=== PATIENT | female | born 1975 | race Caucasian/White ===

== ENCOUNTER 2020-07-06 14:45 | Outpatient (CLI) | payer OTHER, SELFPAY ==
[2020-07-06 15:04] LABS: Hematocrit 38.9 % (37.0-47.0); Hemoglobin 13.3 g/dL (12.0-15.0)
== END 2020-07-06 14:46 | disposition home or self-care (01) ==
PROVIDERS: PCP Physician Assistant; Visit Provider Obstetrics & Gynecology
DX: N92.0 Excessive and frequent menstruation with regular cycle (principal); Z01.818 Encounter for other preprocedural examination
CPT/HCPCS: 36415; 85014; 85018

== ENCOUNTER 2020-07-07 02:59 | Outpatient (CLI) | payer OTHER, SELFPAY ==
[2020-07-07 19:47] LABS: SARS-CoV-2 RNA PCR Negative
== END 2020-07-07 03:00 | disposition home or self-care (01) ==
LOC: ANHCOVIDDT 02:59
PROVIDERS: PCP Physician Assistant; Visit Provider Obstetrics & Gynecology
DX: Z01.818 Encounter for other preprocedural examination (principal); Z20.828 Contact with and (suspected) exposure to other viral communicable diseases
CPT/HCPCS: 87635; C9803; U0003

== ENCOUNTER 2020-07-10 04:06 | Day surgery (SDC) | payer OTHER, SELFPAY ==
[2020-07-03 13:34] VITALS: BMI 22.8
--- NOTE | 2020-07-07 11:46 | PM.IMHP ---
H&P: HPI History of Present Illness Date/Time: 07/07/20 11:46 Chief complaint: Pelvic Pain, Menorrhagia Narrative: Elvia Feldman is a 44 year old female 1 para 1 who is admitted for hysteroscopy and dilatation curettage. She has had excessive bleeding and heavy cramping. She underwent an ultrasound that shows a possible polyp. Risks and benefits of these procedures were reviewed including but not exclusive of , aspiration pneumonia, bleeding, transfusion, perforation to bowel, bladder, ureters, or other internal organs with need for open laparotomy. She voiced understanding. She received the [employer] handout entitled hysteroscopy and dilatation curettage respectively. She asked to proceed Review of Systems Review of Systems: All systems reviewed & are unremarkable except as noted in HPI and below PMFSH Social History Social History Smoking packs per day: 0.5 Smoking cigarettes per day: 10.0 Years smoked: 10 Smoking pack-years: 5.00 Smoking status: Former smoker Tobacco type: cigars Smoking end date: 02/18/10 Additional smoking assessment comments: OCCAS CIGAR, ~1/WEEK Alcohol intake: current Drinks per week: 6 Substance use: never Additional living arrangements comments: & SON Spiritual care concerns: No Meds Home Medications and Allergies Home Medications Medication Instructions Recorded Confirmed Type No Home Medications 07/03/20 07/03/20 History Allergies Allergy/AdvReac Type Severity Reaction Status Date / Time No Known Allergies Allergy Mild Verified 07/03/20 13:33 Exam Const: General: no acute distress Neck: Neck: supple and no JVD Thyroid: thyroid normal Resp: Effort & Inspection: normal respiratory effort Auscultation: clear to auscultation bilaterally Cardio: Rate: regular rate Rhythm: regular rhythm GI: Inspection: non-distended GI Palp: Yes Soft to palpation, No Tenderness to palpation present (GI) and No Guarding due to palpation present (GI) Auscultation: normal bowel sounds : General: Yes bladder normal to palpation External Female Exam: normal external appearance Speculum Exam - Vagina: normal vaginal discharge and No vaginal bleeding Speculum Exam - Cervix: nontender Bimanual exam- vagina & uterus: bladder normal to palpation and No Cervical tenderness present OB/external & speculum: No vaginal bleeding Skin: General skin exam: no rashes or lesions noted Extrem: General: normal to inspection and no edema Psych: Mental Status: mental status grossly normal Affect: normal affect Assessment and Plan Additional Plan impression: Excessive heavy heavy bleeding with expected uterine polyp Plan: Hysteroscopy/ dilatation and curettage
--- NOTE | 2020-07-09 09:13 | WPDANESEPPF ---
Anes - Initial Pre Proc Eval Procedure: Operation Date: 07/10/20 11:30 Proposed Procedures p Hysteroscopy Dilation and Curettage - Vinayak Ace MD Date/Time: 07/09/20 09:13 Surgeon: Vinayak Ace MD Pre Op Diagnosis: Pelvic Pain, Menorrhagia Patient Data Age: 44 Gender: F Height: 1.7 m Weight: 66 kg Allergies Allergy/AdvReac Type Severity Reaction Status Date / Time No Known Allergies Allergy Mild Verified 07/03/20 13:33 Home Medications Medication Instructions Recorded Confirmed Type hydrocodone-acetaminophen [[place]] 1 tablet PO Q4H PRN #20 tablet 07/10/20 Rx Patient hx anesthesia problems: none Family hx anesthesia problems: none PMFSH Surgical History Surgical History (Updated 07/09/20 @ 09:14 by Delbert Boyce DO) History of tubal ligation Social History Social History Smoking packs per day: 0.5 Smoking cigarettes per day: 10.0 Years smoked: 10 Smoking pack-years: 5.00 Smoking status: Former smoker Tobacco type: cigars Smoking end date: 02/18/10 Additional smoking assessment comments: OCCAS CIGAR, ~1/WEEK Alcohol intake: current Drinks per week: 6 Substance use: never Living arrangements: with family Additional living arrangements comments: & SON Spiritual care concerns: No Anes - Eval Final PreProcedure Day of Procedure 07/09/20 09:13 Patient weight: normal Heart: regular rate and rhythm Lungs: clear to auscultation and normal air movement Airway: Mallampati scale class II Neurological: alert and oriented Last oral intake: >/= 8 hours ASA classification: II Emergent: no Anesthetic plan: proceed Anesthesia type and monitoring: general GIVS and standard monitoring Informed Consent: The patient's anesthetic plan and its attendant risks and benefits were discussed with the patient/family/POA. Questions were solicited and answers provided to the satisfaction of the patient/family/POA.
--- NOTE | 2020-07-10 06:34 | WPDHPUPDATE1 ---
History and Physical Update Update Date/Time: 07/10/20 06:34 History and Physical has been reviewed, including an updated exam of the patient. There are NO changes in the patient's condition. Risks, benefits, and alternatives have been discussed and questions answered. Patient agrees to proceed with procedure.
[2020-07-10 11:14] VITALS: BP 110/62; PULSE 58; RESP 18; TEMP 36.9; O2SAT 100
[2020-07-10] MEDS: LACTATED RINGERS 1,000 ML 30 ML IV CONT (11:25)
--- NOTE | 2020-07-10 12:05 | PM.PROC ---
Procedure Note - Detailed Date of procedure: 07/10/20 Pre-op diagnosis: Pelvic Pain, Menorrhagia Surgeon: Vinayak Ace MD Postop diagnosis: Pelvic pain/ menorrhagia Procedure: Hysteroscopy/ dilatation and curettage Anesthesia: IV sedation/local EBL: 5cc complications: None Findings: Uterus sounded to 9cm. Normal-appearing fallopian tube ostia bilaterally. Thick endometrium. Description of procedure: The patient was prepped and draped in normal sterile fashion and placed in dorsal lithotomy position. Under excellent IV sedation weighted speculum was placed in the posterior fornix of vagina. Anterior lip of the cervix grasped with a single-tooth tenaculum. 2.5cc of 1% xylocaine anesthesia placed at 2, 4, 8, 10:00 a.m. in the cervix respectively. Uterus sounded to 9cm. Serial dilatation with fragmented dilators performed. This was followed by passage of the 5 visualizing hysteroscope using normal saline as visualizing medium. Thick irregular endometrial tissue was seen but no evidence of other pathology. Uterus was scraped over the entire 360? until a good grating sound was heard. Answers removed all were accounted for. She tolerated the procedure well. All sponge, needle, instrument counts were correct. There were no immediate complications
[2020-07-10 12:08] VITALS: BP 106/67; PULSE 63; RESP 20; O2SAT 94
[2020-07-10 12:30] VITALS: BP 112/68; PULSE 70; RESP 20
[2020-07-10 12:50] VITALS: BP 107/68; PULSE 65; RESP 20
== END 2020-07-10 12:58 | disposition home or self-care (01) ==
PROVIDERS: PCP Physician Assistant; Visit Provider Obstetrics & Gynecology
PROC: 0U5B8ZZ Destruction of Endometrium, Via Natural or Artificial Opening Endoscopic (ICD-10-PCS; CPT 58563; principal; 2020-07-10 13:00)
DX: R10.2 Pelvic and perineal pain (principal); N92.0 Excessive and frequent menstruation with regular cycle; Z87.891 Personal history of nicotine dependence
CPT/HCPCS: 58558; 88305; A9270; J2250; J2405; J2704; J3010; J7120

== ENCOUNTER 2020-07-20 15:29 | Outpatient (CLI) | payer OTHER, SELFPAY ==
--- NOTE | ~2020-07-20 | MM_ITS ---
EXAMINATION: MM screening [facility] BI w govind HISTORY: Screening mammogram TECHNIQUE: Craniocaudal and mediolateral oblique 3-D tomosynthesis images were obtained and synthetic 2-D images were generated. CAD analysis was submitted and interpreted. COMPARISON: 07/01/2019, 12/25/2017 bilateral digital screening mammogram examinations BREAST PARENCHYMAL COMPOSITION: The breasts are heterogeneously dense, which may obscure small masses . FINDINGS: Scattered bilateral benign microcalcifications are noted. There is no evidence of suspiciou s mass, calcification, or architectural distortion to suggest malignancy in either breast. There has been no suspicious interval change. IMPRESSION: 1. No mammographic evidence of malignancy. 2. Recommend routine screening mammography in one year. BI-RADS Category 2: Benign finding(s). Reviewed, dictated and finalized at location A. [facility] DOCTOR
== END 2020-07-20 15:30 | disposition home or self-care (01) ==
LOC: ANHIMG 15:31
PROVIDERS: PCP Physician Assistant; Visit Provider Obstetrics & Gynecology
DX: Z12.31 Encounter for screening mammogram for malignant neoplasm of breast (principal)
CPT/HCPCS: 77063; 77067

== ENCOUNTER 2022-02-02 01:15 | Day surgery (SDC) | payer OTHER, SELFPAY ==
[2022-01-12 13:08] VITALS: BMI 24.8
--- NOTE | 2022-02-01 14:45 | WPDANESEPPF ---
Anes - Initial Pre Proc Eval Procedure: Operation Date: 02/02/22 07:30 Proposed Procedures p Screening Colonoscopy - Jay Duffy MD Date/Time: 02/01/22 14:45 Surgeon: Jay Duffy MD Pre Op Diagnosis: neoplasm screening Patient Data Age: 46 Gender: F Height: 1.7 m Weight: 72 kg Allergies Allergy/AdvReac Type Severity Reaction Status Date / Time No Known Allergies Allergy Mild Verified 02/02/22 06:23 Patient hx anesthesia problems: none Family hx anesthesia problems: none Results Review: All pre-operative results and documents have been reviewed as part of the pre-operative evaluation. [facility] Surgical History Surgical History History of tubal ligation Social History Social History Smoking packs per day: 0.5 Smoking cigarettes per day: 10.0 Years smoked: 20 Smoking pack-years: 10.00 Smoking status: Current every day smoker Tobacco type: cigars Smoking end date: 02/18/10 Additional smoking assessment comments: OCCAS CIGAR, ~1/WEEK Alcohol intake: current Drinks per week: 4 Substance use: never Substance use type: does not use Living arrangements: with family Additional living arrangements comments: & SON Spiritual care concerns: No Anes - Eval Final PreProcedure Day of Procedure 02/01/22 14:45 Patient weight: normal Heart: regular rate and rhythm Lungs: clear to auscultation and normal air movement Airway: Mallampati scale class II Neurological: alert and oriented Last oral intake: >/= 8 hours ASA classification: II Emergent: no Anesthetic plan: proceed Anesthesia type and monitoring: general GIVS and standard monitoring Results Review: All pre-operative results and documents have been reviewed as part of the pre-operative evaluation. Informed Consent: The patient's anesthetic plan and its attendant risks and benefits were discussed with the patient/family/POA. Questions were solicited and answers provided to the satisfaction of the patient/family/POA.
--- NOTE | 2022-02-01 16:00 | PM.HPGS ---
History of Present Illness History of Present Illness Consent: Risks, benefits, and alternatives have been discussed and questions answered. Patient agrees to proceed with procedure. Chief complaint: neoplasm screening Narrative: Elvia Feldman is a 46 year old female referred for colon cancer screening Review of Systems Review of Systems: All systems reviewed & are unremarkable except as noted in HPI and below [facility] Surgical History Surgical History History of tubal ligation Social History Social History Smoking packs per day: 0.5 Smoking cigarettes per day: 10.0 Years smoked: 20 Smoking pack-years: 10.00 Smoking status: Current every day smoker Tobacco type: cigars Smoking end date: 02/18/10 Additional smoking assessment comments: OCCAS CIGAR, ~1/WEEK Alcohol intake: current Drinks per week: 4 Substance use: never Substance use type: does not use Living arrangements: with family Additional living arrangements comments: & SON Spiritual care concerns: No Meds Home Medications and Allergies Allergies Allergy/AdvReac Type Severity Reaction Status Date / Time No Known Allergies Allergy Mild Verified 02/02/22 06:23 Exam Resp: Auscultation: clear to auscultation bilaterally Cardio: Rate: regular rate Rhythm: regular rhythm GI: GI Palp: Yes Soft to palpation and No Tenderness to palpation present (GI) Assessment and Plan Assessment and plan (1) Colon cancer screening: Code(s): Z12.11 - Encounter for screening for malignant neoplasm of colon Status: Acute Assessment and Plan: Colonoscopy with possible biopsy or polypectomy or cautery or injection of substances.
[2022-02-02 06:24] VITALS: BP 106/81; PULSE 60; RESP 16; TEMP 36.3; O2SAT 100
[2022-02-02] MEDS: LACTATED RINGERS 1,000 ML 150 ML IV CONT ×2 (06:38→06:39)
--- NOTE | 2022-02-02 07:13 | P.PNAN_ITS ---
Anes - Initial Pre Proc Eval Procedure: Operation Date: 02/02/22 07:30 Proposed Procedures p Screening Colonoscopy - Jay Duffy MD Date/Time: 02/02/22 07:13 Surgeon: Jay Duffy MD Pre Op Diagnosis: neoplasm screening Patient Data Age: 46 Gender: F Height: 1.7 m Weight: 73.1 kg Last Vital Signs Temp 97.4 F L 02/02/22 06:24 Pulse 60 02/02/22 06:24 Resp 16 02/02/22 06:24 BP 106/81 02/02/22 06:24 Pulse Ox 100 02/02/22 06:24 O2 Del Method Room Air 02/02/22 06:24 Allergies Allergy/AdvReac Type Severity Reaction Status Date / Time No Known Allergies Allergy Mild Verified 02/02/22 06:23 Patient hx anesthesia problems: none Family hx anesthesia problems: none Results Review: All pre-operative results and documents have been reviewed as part of the pre- operative evaluation. [facility] Surgical History Surgical History History of tubal ligation Social History Social History Smoking packs per day: 0.5 Smoking cigarettes per day: 10.0 Years smoked: 20 Smoking pack-years: 10.00 Smoking status: Current every day smoker Tobacco type: cigars Smoking end date: 02/18/10 Additional smoking assessment comments: OCCAS CIGAR, ~1/WEEK Alcohol intake: current Drinks per week: 4 Substance use: never Substance use type: does not use Living arrangements: with family Additional living arrangements comments: & SON Spiritual care concerns: No Anes - Eval Final PreProcedure Day of Procedure 02/02/22 07:13 Heart: regular rate and rhythm Lungs: clear to auscultation Airway: Mallampati scale class 1 Neurological: alert and oriented Last oral intake: >/= 8 hours ASA classification: II Emergent: yes Anesthetic plan: proceed Anesthesia type and monitoring: general Results Review: All pre-operative results and documents have been reviewed as part of the pre- operative evaluation. Informed Consent: The patient's anesthetic plan and its attendant risks and benefits were discussed with the patient/family/POA. Questions were solicited and answers provided to the satisfaction of the patient/family/POA.
[2022-02-02] MEDS: SIMETHICONE ORAL SUSPENSION 20 MG/0.3 ML 30 ML BOTTLE 0.6 ML IRRIGATION (07:37)
[2022-02-02 07:50] VITALS: BP 104/71; PULSE 67; RESP 18; O2SAT 100
[2022-02-02 07:59] VITALS: BP 105/76; PULSE 58; RESP 18; O2SAT 100
[2022-02-02 08:09] VITALS: BP 101/70; PULSE 52; RESP 20; O2SAT 100
== END 2022-02-02 08:20 | disposition home or self-care (01) ==
PROVIDERS: PCP Physician Assistant; Visit Provider Internal Medicine Gastroenterology
PROC: 0DJD8ZZ Inspection of Lower Intestinal Tract, Via Natural or Artificial Opening Endoscopic (ICD-10-PCS; CPT 45378; principal; 2022-02-02 07:30)
DX: Z12.11 Encounter for screening for malignant neoplasm of colon (principal); K57.30 Diverticulosis of large intestine without perforation or abscess without bleeding; Z72.0 Tobacco use
CPT/HCPCS: 45378; J2704; J7120

== ENCOUNTER 2022-05-31 07:14 | Outpatient (CLI) | payer OTHER, SELFPAY ==
--- NOTE | ~2022-05-31 | MM_ITS ---
EXAMINATION: MM screening [facility] BI w govind HISTORY: Screening TECHNIQUE: Craniocaudal and mediolateral oblique 3-D tomosynthesis images were obtained and synthetic 2-D images were generated. CAD analysis was submitted and interpreted. COMPARISON: Comparison to multiple prior studies sequentially, with oldest reviewed study dated 02/2018. BREAST PARENCHYMAL COMPOSITION: The breasts are extremely dense, which lowers the sensitivity of mamm ography FINDINGS: There are developing calcifications in the upper inner quadrant of the right breast, middle third. There are no suspicious masses or architectural distortion. The left breast is stable without evidence for malignancy. IMPRESSION: 1. Developing clustered indeterminate right breast calcifications, upper inner quadrant middle third. 2. Magnification views are recommended. BI-RADS Category 0: Incomplete: Needs additional imaging evaluation. Reviewed, dictated and finalized at location A.
== END 2022-05-31 07:15 | disposition home or self-care (01) ==
LOC: ANHIMG 07:15
PROVIDERS: PCP Physician Assistant; Visit Provider Obstetrics & Gynecology
DX: Z12.31 Encounter for screening mammogram for malignant neoplasm of breast (principal); R92.8 Other abnormal and inconclusive findings on diagnostic imaging of breast
CPT/HCPCS: 77063; 77067

== ENCOUNTER 2022-06-13 12:51 | Outpatient (CLI) | payer OTHER, SELFPAY ==
--- NOTE | ~2022-06-13 | MM_ITS ---
EXAMINATION: MM diagnostic mammo unilat RT HISTORY: Indeterminate right breast calcifications on screening mammogram TECHNIQUE: Magnification views of the right breast were performed. CAD analysis was submitted and int erpreted. COMPARISON: 05/31/2022, 07/20/2020 FINDINGS: There are punctate calcifications in the anterior middle third of the upper breast at the 1 2:00 location which appear to be round in morphology. No associated mass or architectural distortion are identified. IMPRESSION: 1. Probably benign right breast calcifications. 2. Recommend 6 month follow-up right diagnostic mammogram. BI-RADS category 3, probably benign findings. Reviewed, dictated and finalized at location A.
== END 2022-06-13 12:52 | disposition home or self-care (01) ==
LOC: ANHIMG 12:53
PROVIDERS: PCP Physician Assistant; Visit Provider Obstetrics & Gynecology
DX: R92.8 Other abnormal and inconclusive findings on diagnostic imaging of breast (principal)
CPT/HCPCS: 77065

== ENCOUNTER 2023-01-19 13:21 | Outpatient (CLI) | payer OTHER, SELFPAY ==
--- NOTE | ~2023-01-19 | MMUS_ITS ---
EXAMINATION: MM diagnostic [facility] RT w govind, US breast RT complete HISTORY: Six-month follow-up of probably benign right breast calcifications TECHNIQUE: ML, MLO and CC 3-D tomosynthesis images of the right breast were performed and synthetic 2 -D images were generated. CAD analysis was submitted and interpreted. Magnification ML and CC views. High resolution complete right breast ultrasound examination including all 4 quadrants and subareolar area was performed. COMPARISON: 06/09/2022 diagnostic right mammogram 05/31/2022 bilateral screening mammogram BREAST PARENCHYMAL COMPOSITION: The breasts are extremely dense, which lowers the sensitivity of mamm ography. FINDINGS: MAMMOGRAPHIC FINDINGS: Numerous benign microcalcifications are scattered in the right breast. No malignant features are iden tified. Approximately by 10.5 mm circumscribed opacity is noted in the upper mid right breast (MLO Tomosynthe sis image /33; CC Tomosynthesis image /). No suspicious mass, architectural distortion, malignant calcification, skin thickening or retraction or significant new or developing density of the right breast is evident. ULTRASOUND: 9:00 2 cm from nipple: 4.4 x 5.9 x 6.2 mm sonolucency with through transmission posterior enhancement , no internal vascularity, consistent with simple cyst 1:00 2 cm from nipple: Parallel circumscribed multiseptated cyst measuring approximately 6.8 x 3.4 x 14.1 mm No suspicious mass or shadowing of either breast is detected. IMPRESSION: 1. Benign microcalcifications in benign cysts; no mammographic evidence of malignancy 2. Routine annual mammographic screening is recommended BI-RADS Category 2: Benign finding(s). Reviewed, dictated and finalized at location A. IMPRESSION: 1. Benign microcalcifications in benign cysts; no mammographic evidence of david gnancy 2. Routine annual mammographic screening is recommended BI-RADS Category 2: Benign finding(s).
== END 2023-01-19 13:22 | disposition home or self-care (01) ==
PROVIDERS: PCP Physician Assistant; Visit Provider Obstetrics & Gynecology
DX: R92.8 Other abnormal and inconclusive findings on diagnostic imaging of breast (principal)
CPT/HCPCS: 76641; 77061; 77065; G0279

== ENCOUNTER 2023-04-18 10:34 | Emergency (ER) | payer OTHER, SELFPAY ==
--- NOTE | 2023-04-18 10:37 | ED.URI ---
HPI - URI/Sore Throat General Chief Complaint: Upper Respiratory Infection Stated Complaint: Sore Throat Time Seen by Provider: 04/18/23 10:37 Source: patient Mode of arrival: ambulatory Limitations: no limitations History of Present Illness HPI Narrative: Claudia is a 47 y/o Female that presents with right eye irritation, congestion and sore throat since Monday. Patient states she thought it was allergies and has been using visine eye drops and over the counter cold and flu medication with moderate relief. Patient states sore throat has worsened but eye has improved. Denies any fever, chills, cough, SOB, Nausea, vomiting or diarrhea. Related Data Home Medications Medication Instructions Recorded Confirmed buspirone 15 mg tablet 15 mg PO BID 04/18/23 04/18/23 methylphenidate HCl 10 mg tablet 10 mg PO BID 04/18/23 04/18/23 Allergies Allergy/AdvReac Type Severity Reaction Status Date / Time No Known Allergies Allergy Mild Verified 04/18/23 10:43 Review of Systems Review of Systems: All systems reviewed & are unremarkable except as noted in HPI and below Constitutional: Constitutional: Denies body ache(s), Denies chills, Denies fatigue, Denies fever(s), Denies headache(s), Denies malaise and Denies weakness Eyes: Eyes: Denies blurry vision, Reports itchy eyes and Denies loss of vision ENT: Denies otalgia, Denies headache(s), Reports nasal congestion, Denies sinus pain and Reports sore throat Cardiovascular: Cardiovascular: Denies chest pain, Denies irregular heart rhythm and Denies dyspnea Respiratory: Respiratory: Denies cough and Denies dyspnea Gastrointestinal: Gastrointestinal: Denies abdominal pain, Denies diarrhea, Denies nausea and Denies vomiting Musculoskeletal: Musculoskeletal: Denies back pain, Denies myalgias and Denies arthralgias Integumentary/Breasts: Skin/Breast: Denies pruritus and Denies rash Neurologic: Denies headache(s), Denies loss of vision and Denies weakness Psychiatric: Psychiatric: Reports no additional psychiatric complaints Endocrine: Endocrine: Denies fatigue Allergic/Immunologic: Allergic/Immunologic: Denies itchy eyes PMFSH Surgical History Surgical History History of tubal ligation Social History Social History Smoking packs per day: 0.5 Smoking cigarettes per day: 10.0 Years smoked: 20 Smoking pack-years: 10.00 Smoking status: Current every day smoker Tobacco type: cigars Smoking end date: 02/18/10 Additional smoking assessment comments: OCCAS CIGAR, ~1/WEEK Alcohol intake: current Drinks per week: 4 Substance use: never Substance use type: does not use Living arrangements: with family Additional living arrangements comments: & SON Spiritual care concerns: No Comments At time of signature, agree with nursing past medical, surgical, social and family history. There is no relevant family history pertinent to the presenting complaint. Exam Const: General: cooperative, healthy appearing, comfortable, no acute distress and well nourished Nutritional Appearance: well nourished Orientation/consciousness: patient oriented x3 Limitations: no limitations HENMT: Head: normal to inspection, normocephalic and atraumatic Ears: hearing grossly normal bilaterally, external ears normal, TM's normal bilaterally, EAC's normal and no periauricular adenopathy Face/Nose/Sinus: Normal external nose present, Normal nasal mucous membranes and turbinates present, normal facial exam, sinuses nontender and face symmetric Face and sinus: normal facial exam, sinuses nontender and face symmetric Mouth: Yes Normal oral and palatal mucosa present, Yes lip normal, Yes tongue normal, Yes Normal salivary glands and ducts present, Yes oropharynx normal and Yes moist mucous membranes Teeth and gingiva: dentition normal Throat: tonsils normal, uvula midline,
[2023-04-18 10:42] VITALS: BP 120/75; PULSE 63; RESP 16; TEMP 37.1; O2SAT 100
[2023-04-18 10:44] VITALS: BP 120/75; PULSE 63; RESP 16; TEMP 37.1; O2SAT 100
== END 2023-04-18 11:07 | disposition home or self-care (01) ==
PROVIDERS: Emergency Provider Nurse Practitioner Family; PCP Physician Assistant
DX: J06.9 Acute upper respiratory infection, unspecified (principal); Z72.0 Tobacco use
CPT/HCPCS: 87081; 87880; 99213; G0463

== ENCOUNTER 2023-05-01 13:51 | Emergency (ER) | payer OTHER, SELFPAY ==
[2023-05-01 14:04] VITALS: BP 128/83; PULSE 59; RESP 18; TEMP 36.9; O2SAT 100
--- NOTE | 2023-05-01 14:23 | ED.URI ---
HPI - URI/Sore Throat General Chief Complaint: Upper Respiratory Infection Stated Complaint: Sore Throat Time Seen by Provider: 05/01/23 14:11 Source: patient, RN notes reviewed and old records reviewed Mode of arrival: ambulatory Limitations: no limitations History of Present Illness HPI Narrative: Patient presents today complaining of sore throat, bilateral ear pressure, fatigue, mild congestion. Symptoms have been present for at least 2 weeks. She was initially seen at [facility] on 04/18/2023 where her rapid strep was negative and she was diagnosed with an upper respiratory infection. States some for symptoms have improved, but the sore throat is what is bothering her the most. She currently rates her pain 10 and has been taking Tylenol and ibuprofen without relief. Related Data Home Medications Medication Instructions Recorded Confirmed buspirone 15 mg tablet 15 mg PO BID 04/18/23 05/01/23 methylphenidate HCl 10 mg tablet 10 mg PO BID 04/18/23 05/01/23 Allergies Allergy/AdvReac Type Severity Reaction Status Date / Time No Known Allergies Allergy Mild Verified 05/01/23 14:01 Review of Systems Review of Systems: CONSTITUTIONAL: Denies body aches, fever, chills, or sweats.+ fatigue EYES: Denies visual changes, redness, or discharge. ENT: Denies rhinorrhea.+ congestion, sore throat, ear pressure CARDIOVASCULAR: Denies chest pain, palpitations, or edema. RESPIRATORY: Denies cough or dyspnea. GASTROINTESTINAL: Denies abdominal pain, nausea, vomiting, or diarrhea. GENITOURINARY: Denies dysuria or hematuria. SKIN: Denies rash, itching, or wounds. MUSCULOSKELETAL: Denies back pain, joint pain, or myalgia. NEUROLOGIC: Denies headache, numbness, tingling, or weakness. PSYCH: Denies depression or anxiety. [facility] Surgical History Surgical History History of tubal ligation Social History Social History Smoking packs per day: 0.5 Smoking cigarettes per day: 10.0 Years smoked: 20 Smoking pack-years: 10.00 Smoking status: Current every day smoker Tobacco type: cigars Smoking end date: 02/18/10 Additional smoking assessment comments: OCCAS CIGAR, ~1/WEEK Alcohol intake: current Drinks per week: 4 Substance use: never Substance use type: does not use Living arrangements: with family Additional living arrangements comments: & SON Spiritual care concerns: No Comments At time of signature, I have reviewed and agree with nursing past medical, surgical, social and family history unless otherwise noted. Please see nursing chart for further information. There is no relevant family history pertinent to the presenting complaint Exam Narrative: GENERAL: Well-appearing, well-nourished, and in no acute distress. HEAD: Normocephalic, atraumatic. EYES: EOMI. No redness or drainage. Conjunctivae normal. ENT: Mucous membranes pink and moist. Nares clear. No rhinorrhea. TMs normal bilaterally. Throat mildly erythematous without edema or exudate. Uvula midline. NECK: Normal AROM. Supple. Bilateral posterior cervical chain lymphadenopathy. CHEST: No respiratory distress. Clear to auscultation. HEART: Regular rate and rhythm. No murmur appreciated. Normal peripheral pulses. EXTREMITIES: Normal range of motion. No edema. SKIN: Warm, dry, no rash. Capillary refill normal. Normal skin turgor. NEURO: No focal deficits. Alert and oriented x3. Gait steady. PSYCH: Normal affect. No signs of depression or anxiety. Course Course Level of Care: Express Care Visit Vital Signs Vital signs: Vital Signs Temperature 98.4 F 05/01/23 14:04 Pulse Rate 59 L 05/01/23 14:04 Respiratory Rate 18 05/01/23 14:04 Blood Pressure 128/83 05/01/23 14:04 Pulse Oximetry 100 05/01/23 14:04 Oxygen Delivery Room Air 05/01/23 14:04 Temperature 98.4 F 05/01
== END 2023-05-01 14:43 | disposition home or self-care (01) ==
PROVIDERS: Emergency Provider Nurse Practitioner; PCP Physician Assistant
DX: J02.9 Acute pharyngitis, unspecified (principal); Z72.0 Tobacco use
CPT/HCPCS: 36416; 86308; 99213; G0463

== ENCOUNTER → 2023-06-01 09:01 | Outpatient (CLI) | payer OTHER, SELFPAY ==
--- NOTE | ~2023-06-01 | MR_ITS ---
EXAMINATION: MR brain/brain stem wo/w con DATE: 06/01/2023 10:07 INDICATION: Closed injury of head. TECHNIQUE: Magnetic resonance imaging (MRI) of the brain and brainstem was performed without and with 12 mL MultiHance intravenous contrast. COMPARISON: None. FINDINGS: There is no intracranial hemorrhage, acute infarction, or abnormal intracranial mass lesion . There are scattered areas of nonspecific increased T2-weighted signal intensity in the cerebral whi te matter. The ventricles are normal in size. The paranasal sinuses are clear. The orbits are normal. The mastoid air cells are normal. IMPRESSION: 1. Mild nonspecific cerebral white matter disease. The differential diagnosis includes premature last inserter chantell small vessel ischemic disease (especially if the patient has cardiovascular risk factors), demyel inating disease such as multiple sclerosis, drug abuse, vasculitis, or reactive astrocytosis (gliosis ) secondary to nonspecific etiology. Reviewed, dictated and finalized at location A. IMPRESSION: 1. Mild nonspecific cerebral white matter disease. The differential diagnosis i ncludes premature chronic small vessel ischemic disease (especially if the quique ent has cardiovascular risk factors), demyelinating disease such as multiple sc lerosis, drug abuse, vasculitis, or reactive astrocytosis (gliosis) secondary t o nonspecific etiology.
== END ==
PROVIDERS: PCP Physician Assistant; Visit Provider Physician Assistant
DX: S09.90XA Unspecified injury of head, initial encounter (principal); X58.XXXA Exposure to other specified factors, initial encounter; R90.82 White matter disease, unspecified
CPT/HCPCS: 70553; A9577

== ENCOUNTER 2024-07-14 08:13 | Observation (INO) | payer OTHER, SELFPAY ==
--- NOTE | ~2024-07-14 | CT_ITS ---
EXAMINATION: CT abdomen pelvis w con DATE: 07/14/2024 09:13 INDICATION: Bilateral lower quadrant pain. TECHNIQUE: Computed tomography (CT) of the abdomen and pelvis was performed with 100 mL Omnipaque-350 intravenous contrast. Automated exposure control and iterative reconstruction technique were employe d. The dose-length product was 237.52 mGy-cm. COMPARISON: None FINDINGS: Lung bases are clear. Heart size is normal. No pericardial or pleural effusion. Liver, gallbladder, s pleen, pancreas, bilateral adrenal glands and kidneys are normal. Bladder is normal. Uterus is normal . There are 3 tiny ringlike densities in the left hemipelvis which could represent phleboliths or tub al ligation rings, potentially displaced. Correlate with clinical history. There is moderate sigmoid predominant diverticulosis. There is prominent wall thickening and inflammatory stranding at the mid sigmoid colon consistent with diverticulitis. No free intraperitoneal gas or abscess. Small bowel and appendix are normal. Bones are unremarkable. IMPRESSION: 1. Sigmoid diverticulitis without abscess. 2. 3 tiny ringlike densities in the left hemipelvis suspicious for potentially displaced tubal ligati on rings with differential including phleboliths. Correlate with clinical history. Reviewed, dictated and finalized at location A. NCIAL SERVICES SPECIALIST IMPRESSION: 1. Sigmoid diverticulitis without abscess. 2. 3 tiny ringlike densities in the left hemipelvis suspicious for potentially displaced tubal ligation rings with differential including phleboliths. Correla te with clinical history.
[2024-07-14 08:14] VITALS: BP 114/75; PULSE 89; RESP 17; TEMP 36.4; O2SAT 100
[2024-07-14 08:32] LABS: Basophils Percent Auto 0.2 % (0.2-1.2); Eosinophils Percent Auto 0.1 % (0-4.4); Hematocrit 40.9 % (37.0-47.0); Hemoglobin 13.8 g/dL (12.0-15.0); Immature Granulocyte Absolute 0.06 K/mm3 (0.00-0.031); Immature Granulocyte Percent A 0.3 % (0-0.5); Lymphocytes Percent Auto 7.4 % (18.3-44.2); Mean Corpuscular HGB Conc 33.7 g/dl (32-36); Mean Corpuscular Hemoglobin 32.5 pg (26-34); Mean Corpuscular Volume 96.5 fl (80-100); Mean Platelet Volume 10.5 fl (7.4-10.4); Monocytes Absolute Auto 1.4 K/mm3 (0.1-0.6); Monocytes Percent Auto 7.4 % (2.6-8.5); Neutrophils Percent Auto 84.6 % (45.5-73.1); Platelet Count Result 298 k/mm3 (150-375); Red Blood Count 4.24 M/mm3 (4.2-5.4); Red Cell Distribution Width 12.6 % (11.5-14.5); White Blood Count 18.9 K/mm3 (4.5-10.0)
[2024-07-14] MEDS: MORPHINE SULFATE (*CRX) 4 MG/ML INJ IV PUSH (08:38)
[2024-07-14] MEDS: ONDANSETRON INJ 4 MG/2 ML VIAL IV PUSH ×2 (08:38→17:45)
[2024-07-14 08:39] LABS: BEDSIDEPREGUCG Negative (Negative)
[2024-07-14 08:43] LABS: Alanine Aminotransferase 19 U/L (6-35); Albumin Level 4.5 g/dL (3.5-5.1); Alkaline Phosphatase 67 U/L (38-126); Anion Gap 10 mmol/L (4-12); Aspartate Amino Transferase 26 U/L (14-36); Bilirubin,Total 3.4 mg/dL (0.2-1.3); Blood Urea Nitrogen 5 mg/dL (7-17); Calcium 9.1 mg/dL (8.4-10.2); Carbon Dioxide 24 mmol/L (22-30); Chloride 99 mmol/L (98-107); Estimated Glomerular Filt Rate > 60; Glucose 129 mg/dL (65-110); Lipase 43 U/L (23-300); Potassium 3.6 mmol/L (3.4-5.0); Sodium 133 mmol/L (137-145)
[2024-07-14 08:49] LABS: Add Urine Microscopic? YES; Appearance Urine Clear (Clear); Bacteria Urine None Seen /hpf; Bilirubin Urine Negative (Negative); Blood Urine Non-Hemolyzed Trace (Negative); Color Urine Yellow (Yellow); Glucose Urine UA Negative (Negative); Ketones Urine 4+ mg/dL (Negative); Leukocyte Esterase Ur Negative LEU/UL (Negative); Nitrate Urine Negative (Negative); Non Pathogenic Casts 0-2; Protein Urine Trace mg/dL (Negative); Specific Grav Ur 1.018 (1.001-1.035); Squamous Epithelial Cell Urine Few /hpf (Few); WBC Urine 0-5 /hpf (0-3); pH Urine 6.5 (5.0-9.0)
--- NOTE | 2024-07-14 09:32 | ED_ITS ---
HPI - Abdominal Pain General Chief Complaint: Abdominal Pain Stated Complaint: abd pain for 12 hours Time Seen by Provider: 07/14/24 08:21 History of Present Illness HPI narrative: Patient is a 48-year-old female who presents ER with abdominal pain. Ongoing since yesterday. Aching cramping. No diarrhea. Unable to get comfortable and has pain with any type of movement. No fevers or chills or sweats. Has history of back to the radiculitis. Related Data Home Medications Medication Instructions Recorded Confirmed buspirone 15 mg tablet 15 mg PO BID 04/18/23 05/01/23 methylphenidate HCl 10 mg tablet 10 mg PO BID 04/18/23 05/01/23 Allergies Allergy/AdvReac Type Severity Reaction Status Date / Time No Known Allergies Allergy Mild Verified 07/14/24 08:14 Review of Systems Review of Systems: All systems reviewed & are unremarkable except as noted in HPI and below Constitutional: Constitutional: Reports no additional constitutional complaints ENT: Reports system reviewed and no additional complaints, except as documented Cardiovascular: Cardiovascular: Reports no additional cardiovascular complaints Respiratory: Respiratory: Reports no additional respiratory complaints Gastrointestinal: Gastrointestinal: Reports abdominal pain, Denies diarrhea, Reports nausea and Denies vomiting PMFSH Past Medical History Medical History (Updated 07/14/24 @ 10:19 by Christopher Kumar MD) Diverticulosis Surgical History Surgical History History of tubal ligation Social History Social History Smoking packs per day: 0.5 Smoking cigarettes per day: 10.0 Years smoked: 20 Smoking pack-years: 10.00 Smoking status: Current every day smoker Tobacco type: cigars Smoking end date: 02/18/10 Additional smoking assessment comments: OCCAS CIGAR, ~1/WEEK Alcohol intake: current Drinks per week: 4 Substance use: never Substance use type: does not use Living arrangements: with family Additional living arrangements comments: & SON Spiritual care concerns: No Exam Narrative: GENERAL: Well-appearing, well-nourished, and in no acute distress. HEAD: Normocephalic, atraumatic. ENT: Mucous membranes moist. CHEST: Clear to auscultation. No respiratory distress. HEART: Regular rate and rhythm. Normal peripheral pulses. ABDOMEN: Soft, tender palpation bilateral lower quadrants with guarding, nondistended, normal active bowel sounds. EXTREMITIES: Normal range of motion. No edema. SKIN: Warm, dry, no rash. NEURO: Alert and oriented x3. PSYCH: Normal mood and affect. Course Course Emergency Course: admit to hospitalist service. IV antibiotics ordered. Vital Signs Vital signs: Vital Signs Temperature 97.6 F 07/14/24 08:14 Pulse Rate 89 07/14/24 08:14 Respiratory Rate 17 07/14/24 08:14 Blood Pressure 114/75 07/14/24 08:14 Pulse Oximetry 100 07/14/24 08:14 Oxygen Delivery Room Air 07/14/24 08:14 Temperature 97.6 F 07/14/24 08:14 Pulse Rate 89 07/14/24 08:14 Respiratory Rate 17 07/14/24 08:14 Blood Pressure 114/75 07/14/24 08:14 Pulse Oximetry 100 07/14/24 08:14 Oxygen Delivery Room Air 07/14/24 08:14 MDM - Abdominal Pain Lab Data 07/14/24 08:27 07/14/24 08:27 Labs: Lab Results 07/14/24 07/14/24 07/14/24 Range/Units 08:27 08:36 08:37 WBC 18.9 H (4.5-10.0) K/mm3 RBC 4.24 (4.2-5.4) M/mm3 Hgb 13.8 (12.0-15.0) g/dL Hct 40.9 (37.0-47.0) % MCV 96.5 (80-100) fl MCH 32.5 (26-34) pg MCHC 33.7 (32-36) g/dl RDW 12.6 (11.5-14.5) % Plt Count 298 (150-375) k/mm3 MPV 10.5 H (7.4-10.4) fl Immature Gran % (Auto) 0.3 (0-0.5) % Neut % (Auto) 84.6 H (45.5-73.1) % Lymph % (Auto) 7.4 L (18.3-44.2) % [place] % (Auto) 7.4 (2.6-8.5) % Eos % (Auto) 0.1 (0-4.4) % Baso % (Auto) 0.2 (0.2-1.2) % Lymph # (Auto) 1.40 (0.9-3.2) K/mm3 [place] # (Auto) 1.4 H (0.1-0.6) K/mm3 Eos # (Auto) 0.0 (0-0.3) K/mm3 Baso # (Auto) 0.0 (0.0-0.1) K/mm3 Abs Immat Gran (auto) 0.06 H (0.00-0.031) K/mm3 Absolute Neuts (auto) 16.0 H (1.3-6.7) K/mm3 Absolute Nucleated RBC 0.000 (0.0-0.012) K/mm3 Nucleated RBC % 0.0 (0.0-0.2) % Sodium 133 L (137-145) mmol/L Potassium 3.6 (3.4-5.0) mmol/L Chloride 99 (98-107) mmol/L Carbon Dioxide 24 (22-30) mmol/L Anion Gap 10 (4-12) mmol/L BUN 5 L (7-17) mg/dL Creatinine 0.50 L (0.7-1.0) mg/dL Estim Creat Clear Calc Not Reportable Estimated GFR > 60 (59 - ) Glucose 129 H (65-110) mg/dL Calcium 9.1 (8.4-10.2) mg/dL Total Bilirubin 3.4 H (0.2-1.3) mg/dL AST 26 (14-36) U/L ALT 19 (6-35) U/L Alkaline Phosphatase 67 (38-126) U/L Total Protein 8.0 (6.3-8.2) g/dL Albumin 4.5 (3.5-5.1) g/dL Lipase 43 (23-300) U/L Urine Color Yellow (Yellow) Urine Appearance Clear (Clear) Urine pH 6.5 (5.0-9.0) Ur Specific [place] 1.018 (1.001-1.035) Urine Protein Trace (Negative) mg/dL Urine Glucose (UA) Negative (Negative) mg/dL Urine Ketones 4+ H (Negative) mg/dL Ur Blood (Man) Non-hemolyzed trace H (Negative) Urine Nitrate Negative (Negative) Urine Bilirubin Negative (Negative) Urine Urobilinogen 1.0 (<2.0) mg/dL Leukocyte Esterase Rfl Negative (Negative) JASS/UL Urine RBC 3-5 H (0-2) /hpf Urine WBC 0-5 (0-3) /hpf Ur Squamous Epith Cells Few (Few) /hpf Urine Bacteria None seen /hpf Urine Casts 0-2 POC Urine HCG, Qual Negative (Negative) Imaging Data Radiologist's impression: ITS Impressions Abdomen/Pelvis CT 07/14/24 09:17 IMPRESSION: 1. Sigmoid diverticulitis without abscess. 2. 3 tiny ringlike densities in the left hemipelvis suspicious for potentially displaced tubal ligation rings with differential including phleboliths. Correlate with clinical history. Discharge Plan Discharge Clinical Impression: Diverticulitis Patient Disposition: Still a Patient Condition: Stable Prescriptions: No Action methylphenidate HCl 10 mg tablet 10 mg PO BID buspirone 15 mg tablet 15 mg PO BID prednisone 50 mg tablet 50 mg PO DAILY 3 Days Qty: 3 0RF amoxicillin-pot clavulanate 875-125 mg tablet 1 tablet PO Q12H 7 Days Qty: 14 0RF Follow-up/Referrals: Karen,DELMI Duncan [Primary Care Provider] -
[2024-07-14] MEDS: SODIUM CHLORIDE 0.9% IV 1,000 ML 125 ML IV CONT ×2 (10:27→17:45)
[2024-07-14] MEDS: HYDROcodone/acetaminophen (*CRX) 5-325 MG TABLET 1 TAB PO ×3 (10:30→22:40)
[2024-07-14] MEDS: metroNIDAZOLE 500 MG/ISO 100ML 500 MG/100 ML BAG 100 MG IVPB ×2 (10:52→17:46)
[2024-07-14 11:08] VITALS: BMI 22.8
--- NOTE | 2024-07-14 11:08 | PC.NURSE ---
received report from ED RN, Bella, @ [phone] 07/14/24.
[2024-07-14] MEDS: MORPHINE SULFATE (*CRX) 2 MG/ML INJ IV PUSH ×2 (12:14→14:17)
--- NOTE | 2024-07-14 12:15 | P.HP_ITS ---
H&P: HPI History of Present Illness Date/Time: 07/14/24 12:15 Chief Complaint: abd pain Narrative: 48 y.o female with pmh/o diverticulosis, smoker admitted from ed for abd pain x 12 hours. Describes it as cramping, denies diarrhea, fever, chills. IN ED: WBC 18.9, hg/hct 13.8/40.9, liver enzymes wnl, BUN 5, cr 0.50 Abdomen/Pelvis CT 07/14/24 09:17 IMPRESSION: 1. Sigmoid diverticulitis without abscess. 2. 3 tiny ringlike densities in the left hemipelvis suspicious for potentially displaced tubal ligation rings with differential including phleboliths. Correlate with clinical history. 07/14- pt is seen and examined. she reports no acute episodes in the past but family has diverticulitis problems. She vapes but wants to quit. Takes adderall for ADHD. Was given morphine and pain is well controlled now. no nausea. Review of Systems Review of Systems: All systems reviewed & are unremarkable except as noted in HPI and below (h/p) [facility] Past Medical History Medical History (Updated 07/14/24 @ 13:24 by Bridget Marie APRN) Diverticulosis Surgical History Surgical History History of tubal ligation Social History Social History Smoking packs per day: 0.5 Smoking cigarettes per day: 10.0 Years smoked: 20 Smoking pack-years: 10.00 Smoking status: Current every day smoker Additional smoking assessment comments: OCCAS CIGAR, ~1/WEEK Alcohol intake: current Drinks per week: 4 Substance use: never Substance use type: does not use Living arrangements: with family Additional living arrangements comments: & SON Spiritual care concerns: No Meds Home Medications and Allergies Home Medications Medication Instructions Recorded Confirmed Type buspirone 15 mg tablet 15 mg PO BID 04/18/23 05/01/23 History methylphenidate HCl 10 mg tablet 10 mg PO BID 04/18/23 05/01/23 History amoxicillin 875 mg-potassium 1 tablet PO Q12H 7 days #14 tabs 05/01/23 Rx clavulanate 125 mg tablet prednisone 50 mg tablet 50 mg PO DAILY 3 days #3 tabs 05/01/23 Rx Allergies Allergy/AdvReac Type Severity Reaction Status Date / Time No Known Allergies Allergy Mild Verified 07/14/24 08:14 Vital Signs Vital Signs - 24 hr 07/14/24 08:14 Temperature 97.6 F Pulse Rate 89 Respiratory Rate 17 Blood Pressure 114/75 Pulse Oximetry 100 Oxygen Delivery Room Air Exam Const: General: comfortable Eyes: General: appearance normal, both eyes and all related structures Neck: Neck: supple Resp: Effort & Inspection: normal respiratory effort Auscultation: clear to auscultation bilaterally Cardio: Rate: regular rate Rhythm: regular rhythm GI: GI Palp: Yes Tenderness to palpation present (GI) Other: hypoactive vs Psych: Mental Status: mental status grossly normal Affect: normal affect H&P: Results Labs Labs: Short CBC 07/14/24 Range/Units 08:27 WBC 18.9 H (4.5-10.0) K/mm3 Hgb 13.8 (12.0-15.0) g/dL Hct 40.9 (37.0-47.0) % Plt Count 298 (150-375) k/mm3 BMP 07/14/24 08:27 Sodium 133 L Potassium 3.6 Chloride 99 Carbon Dioxide 24 BUN 5 L Creatinine 0.50 L Glucose 129 H Calcium 9.1 Liver Function 07/14/24 Range/Units 08:27 Total Bilirubin 3.4 H (0.2-1.3) mg/dL AST 26 (14-36) U/L ALT 19 (6-35) U/L Alkaline Phosphatase 67 (38-126) U/L Albumin 4.5 (3.5-5.1) g/dL Urine 07/14/24 Range/Units 08:36 Urine Color Yellow (Yellow) Urine Appearance Clear (Clear) Urine pH 6.5 (5.0-9.0) Ur Specific [place] 1.018 (1.001-1.035) Urine Protein Trace (Negative) mg/dL Urine Glucose (UA) Negative (Negative) mg/dL Assessment and Plan Assessment and plan (1) Diverticulitis: Code(s): K57.92 - Diverticulitis of intestine, part unspecified, without perforation or abscess without bleeding Status: Acute Assessment and Plan: - IV antibiotics- cefrtriaxone 1gm q24h, flagyl 500 gm q8h IV fluids IV analgesic NPO or liquid diet - if not improvement in a day or two- repeat CT and consider surgical consult (2) ADHD: Code(s): F90.9 - Attention-deficit hyperactivity disorder, unspecified type Status: Acute Assessment and Plan: chronic problem- will resume home med Plan med list is not completed- once done- will resume adderol DVT prophylaxis: SCD Quality VTE Prophylaxis VTE prophylaxis: mechanical ordered Hospitalist [facility] Advance Care Plan I have confirmed that the patient's Advanced Care Plan is present, code status is documented, or surrogate decision maker is listed in patient medical record.: Yes Medication Reconciliation I have utilized all available resources to obtain, update and review the patients current medications (includes all prescriptions, OTC, herbals, cannabis, and nutritional supplements).: Yes
[2024-07-14 12:35] VITALS: BP 123/72; PULSE 82; RESP 16; TEMP 36.8; O2SAT 100
--- NOTE | 2024-07-14 13:05 | ADMGEN ---
This patient, Elvia Feldman, was admitted to 3 [facility] Surg Room 319-01. Patient/family oriented to hospital policies and general routines including ID bracelet, bed and alarms, visiting hours, pain management, procedures, bathroom and other care routines, personal items, smoking policy, room service/diet, and visiting hours. Information on how to activate the Rapid Response Team has been discussed. Patient/Family are encouraged to report perceived risks to care and to ask questions if they do not understand what they are told or what they should do.
[2024-07-14 13:47] VITALS: O2SAT 100
[2024-07-14 14:00] VITALS: BP 115/68; PULSE 83; RESP 16; TEMP 37; O2SAT 100
[2024-07-14 14:43] VITALS: BMI 22.8
[2024-07-14 21:13] VITALS: BP 115/71; PULSE 87; RESP 16; TEMP 37.2; O2SAT 99
[2024-07-15] MEDS: metroNIDAZOLE 500 MG/ISO 100ML 500 MG/100 ML BAG 100 MG IVPB ×3 (01:51→17:40)
[2024-07-15] MEDS: HYDROcodone/acetaminophen (*CRX) 5-325 MG TABLET 1 TAB PO ×5 (02:40→21:13)
[2024-07-15] MEDS: SODIUM CHLORIDE 0.9% IV 1,000 ML 125 ML IV CONT (05:16)
[2024-07-15 06:00] VITALS: BP 119/73; PULSE 81; RESP 16; TEMP 36.6; O2SAT 100
[2024-07-15] MEDS: MORPHINE SULFATE (*CRX) 2 MG/ML INJ IV PUSH (08:37)
[2024-07-15 12:38] LABS: Hematocrit 34.8 % (37.0-47.0); Hemoglobin 11.4 g/dL (12.0-15.0); Mean Corpuscular HGB Conc 32.8 g/dl (32-36); Mean Corpuscular Hemoglobin 32.3 pg (26-34); Mean Corpuscular Volume 98.6 fl (80-100); Mean Platelet Volume 9.9 fl (7.4-10.4); Platelet Count Result 233 k/mm3 (150-375); Red Blood Count 3.53 M/mm3 (4.2-5.4); Red Cell Distribution Width 12.7 % (11.5-14.5); White Blood Count 12.9 K/mm3 (4.5-10.0)
[2024-07-15 12:54] LABS: Alanine Aminotransferase 13 U/L (6-35); Albumin Level 3.4 g/dL (3.5-5.1); Alkaline Phosphatase 48 U/L (38-126); Anion Gap 5 mmol/L (4-12); Aspartate Amino Transferase 16 U/L (14-36); Blood Urea Nitrogen 3 mg/dL (7-17); Calcium 7.8 mg/dL (8.4-10.2); Carbon Dioxide 22 mmol/L (22-30); Chloride 107 mmol/L (98-107); Estimated CRCL calculation 113 ml/min; Estimated Glomerular Filt Rate > 60; Glucose 176 mg/dL (65-110); Potassium 3.1 mmol/L (3.4-5.0); Sodium 134 mmol/L (137-145)
[2024-07-15 14:00] VITALS: BP 119/80; PULSE 80; RESP 15; TEMP 37.1; O2SAT 100
--- NOTE | 2024-07-15 15:08 | PM.IMPN ---
Progress Note: A&P Assessment and Plan (1) Diverticulitis: Code(s): K57.92 - Diverticulitis of intestine, part unspecified, without perforation or abscess without bleeding Status: Acute Assessment and Plan: - IV antibiotics- cefrtriaxone 1gm q24h, flagyl 500 gm q8h IV fluids IV analgesic NPO or liquid diet- advance as tolerated - if not improvement in a day or two- repeat CT and consider surgical consult (2) ADHD: Code(s): F90.9 - Attention-deficit hyperactivity disorder, unspecified type Status: Acute Assessment and Plan: chronic problem- will resume home med Plan DVT prophylaxis: SCD Time Spent With Patient Time with patient: Greater than 35 minutes Subjective Date/time seen: 07/15/24 15:08 Interval history: 48 y.o female admitted on 07/14 for abd pain/diverticulitis. she is on iV antibiotics. Was on clear diet- advancing slowly tonight. Nausea is controlled. Was still requiring some iv pain meds but could be due to waiting too long to get pain meds. She had BM yesterday. Review of Systems Review of Systems: All systems reviewed & are unremarkable except as noted in HPI and below (h/p) Constitutional: Constitutional: Denies chills Cardiovascular: Cardiovascular: Denies chest pain Respiratory: Respiratory: Denies chest congestion and Denies cough Gastrointestinal: Gastrointestinal: Reports abdominal pain and Reports nausea Musculoskeletal: Musculoskeletal: Denies back pain Exam Const: General: comfortable Resp: Effort & Inspection: normal respiratory effort Auscultation: clear to auscultation bilaterally Cardio: Rate: regular rate Rhythm: regular rhythm GI: GI Palp: Yes Soft to palpation Auscultation: normal bowel sounds : External Female Exam: normal external appearance Skin: General skin exam: normal color Neuro: Speech: normal speech Motor exam (neuro): 5/5 motor strength present throughout Extrem: General: normal to inspection Psych: Mental Status: mental status grossly normal Affect: normal affect Objective Data Vital Signs Vital Signs: Vital Signs - 24 hr 07/14/24 21:13 07/15/24 06:00 07/15/24 14:00 Temperature 99.0 F 97.9 F 98.8 F Pulse Rate 87 81 80 Respiratory Rate 16 16 15 Blood Pressure 115/71 119/73 119/80 Pulse Oximetry 99 100 100 Intake/Output Intake/Output: Intake & Output 07/12/24 07/13/24 07/14/24 07/15/24 23:59 23:59 23:59 23:59 Intake Total 1182.5 2334 Balance 1182.5 2334 Meds/Results Medications: Active Medications Generic Name Dose Route Start Last Admin Trade Name Freq PRN Reason Stop Dose Admin Acetaminophen 650 mg 07/14/24 10:14 Acetaminophen 325 Mg Tablet PO Q4H PRN Mild Pain (1-3) or Fever Hydrocodone Bitart/Acetaminophen 1 tab 07/14/24 10:14 07/15/24 14:11 Hydrocodone/Acetaminophen (*Crx) 5-325 Mg Tablet PO 1 tab Q4H PRN Administration Pain Rated 4-6 Sodium Chloride 1,000 mls @ 125 mls/hr 07/14/24 10:15 07/15/24 05:16 Normal Saline Iv IV CONT 125 mls/hr .Q8H SUZI Administration Ceftriaxone Sodium 1 gm in 50 mls @ 100 mls/hr 07/15/24 09:00 07/15/24 08:16 Rocephin 1 Gm/Ns 50 Ml IVPB 100 mls/hr Q24H SUZI Administration Metronidazole 500 mg in 100 mls @ 100 mls/hr 07/14/24 18:00 07/15/24 08:57 Flagyl 500 Mg/Iso Soln 100 Ml IVPB 100 mls/hr Q8H SUZI Administration Potassium Chloride 40 meq/ 520 mls @ 130 mls/hr 07/15/24 15:07 Sodium Chloride IVPB 07/15/24 19:06 ONCE ONE Morphine Sulfate 2 mg 07/14/24 10:14 07/15/24 08:37 Morphine Sulfate (*Crx) 2 Mg/Ml Inj IV PUSH 2 mg Q2H PRN Administration Pain Rated 7-10 Ondansetron HCl 4 mg 07/14/24 10:14 07/14/24 17:45 Ondansetron Inj 4 Mg/2 Ml Vial IV PUSH 4 mg Q4H PRN Administration Nausea Radiology Results: ITS Impressions Abdomen/Pelvis CT 07/14/24 09:17 IMPRESSION: 1. Sigmoid diverticulitis without abscess. 2. 3 tiny ringlike densities in the left hemipelvis suspicious for potentially displaced tubal ligation rings with differential including phleboliths. Correlate with clinical history. Labs Labs: Laboratory Results - last 24 hr 07/15/24 12:30 WBC 12.9 H RBC 3.53 L Hgb 11.4 L Hct 34.8 L MCV 98.6 MCH 32.3 MCHC 32.8 RDW 12.7 Plt Count 233 MPV 9.9 Sodium 134 L Potassium 3.1 L Chloride 107 Carbon Dioxide 22 Anion Gap 5 BUN 3 L Creatinine 0.50 L Estim Creat Clear Calc 113 Estimated GFR > 60 Glucose 176 H Calcium 7.8 L Total Bilirubin 1.0 AST 16 ALT 13 Alkaline Phosphatase 48 Total Protein 7.0 Albumin 3.4 L Quality VTE Prophylaxis VTE prophylaxis: mechanical ordered
[2024-07-15] MEDS: POTASSIUM CHLORIDE INJ 40 MEQ in SODIUM CHLORIDE 0.9% IV 500 ML 130 MEQ IVPB (18:41)
[2024-07-15 19:55] VITALS: BP 112/67; PULSE 73; RESP 20; TEMP 35.9; O2SAT 100
[2024-07-15] MEDS: SODIUM CHLORIDE 0.9% IV 500 ML 75 ML (20:00)
[2024-07-16] MEDS: metroNIDAZOLE 500 MG/ISO 100ML 500 MG/100 ML BAG 100 MG IVPB ×2 (01:33→08:59)
[2024-07-16] MEDS: HYDROcodone/acetaminophen (*CRX) 5-325 MG TABLET 1 TAB PO (01:33)
[2024-07-16 04:40] VITALS: BP 108/66; PULSE 88; RESP 18; TEMP 36.5; O2SAT 99
--- NOTE | 2024-07-16 10:20 | PM.DS ---
DS: Admitting Diagnosis Discharge Date 07/16 Admitting Diagnosis abd pain DS: Discharge Diagnosis Discharge Diagnosis (1) Diverticulitis: Code(s): K57.92 - Diverticulitis of intestine, part unspecified, without perforation or abscess without bleeding Status: Acute (2) ADHD: Code(s): F90.9 - Attention-deficit hyperactivity disorder, unspecified type Status: Acute DS: Summary Hospital Course Hospital Course: 48 y.o female with pmh/o diverticulosis, smoker admitted from ed for abd pain x 12 hours. Describes it as cramping, denies diarrhea, fever, chills. IN ED: WBC 18.9, hg/hct 13.8/40.9, liver enzymes wnl, BUN 5, cr 0.50 CT: 1. Sigmoid diverticulitis without abscess. 2. 3 tiny ringlike densities in the left hemipelvis suspicious for potentially displaced tubal ligation rings with differential including phleboliths. Correlate with clinical history. She received IV antibiotics: flagyl and ceftriaxone. Will be downgraded ot pO. She is encouraged to follow up with OBGYN. K was low- 3.1 on 07/15- we replaced it and send Rx home for 1 week. PCP will have to recheck K level in 1-2 weeks. Status at Discharge Functional status at discharge: independent ambulation Overall status at discharge: patient is progressing back to baseline Time Spent with Patient Time attestation: Total time spent providing and/or coordinating discharge services: Exam Narrative: alert, pain is well controlled. Const: General: comfortable Eyes: General: appearance normal, both eyes and all related structures Neck: Neck: supple Resp: Effort & Inspection: normal respiratory effort Auscultation: clear to auscultation bilaterally Cardio: Rate: regular rate Rhythm: regular rhythm GI: Auscultation: normal bowel sounds Other: hypoactive vs : External Female Exam: normal external appearance Skin: General skin exam: normal color Neuro: Speech: normal speech Motor exam (neuro): 5/5 motor strength present throughout Extrem: General: normal to inspection Psych: Mental Status: mental status grossly normal Affect: normal affect DS: Data Data Completed and Pending Labs on day of discharge: Labs from last 24 hours 07/15/24 12:30 WBC 12.9 H RBC 3.53 L Hgb 11.4 L Hct 34.8 L MCV 98.6 MCH 32.3 MCHC 32.8 RDW 12.7 Plt Count 233 MPV 9.9 Sodium 134 L Potassium 3.1 L Chloride 107 Carbon Dioxide 22 Anion Gap 5 BUN 3 L Creatinine 0.50 L Estim Creat Clear Calc 113 Estimated GFR > 60 Glucose 176 H Calcium 7.8 L Total Bilirubin 1.0 AST 16 ALT 13 Alkaline Phosphatase 48 Total Protein 7.0 Albumin 3.4 L Discharge Plan Discharge Attending physician on discharge: Lalo Arriola Discharging Clinician: Bridget Marie Patient Disposition: Home, Self-Care Activity: may shower Diet: as tolerated and regular Discharge Instructions: Please finish taking antibiotics: cipro for 4 more days, flagyl 500 mg every 8 h. Your potassium was slightly low- i will send a replacement for 1 week. pLease follow up with your PCP for recheck. Keep your [employer] janneth as we discussed. Patient Instructions: Antibiotic Form, How to Stop Smoking (DC), Cigarette Smoking and Your Health (GEN) Stand Alone Forms: General Discharge Information Follow-up/Referrals: Karri,DELMI Duncan [Primary Care Provider] - 1 Week Discharge Medications: New hydrocodone-acetaminophen 5-325 mg Tablet 1 tablet PO Q4H PRN (Reason: Pain Rated 4-6) Qty: 12 0RF metronidazole 500 mg Tablet 500 mg PO Q8HR Qty: 14 0RF ciprofloxacin HCl 500 mg Tablet 500 mg PO Q12HR Qty: 8 0RF potassium chloride 20 mEq tablet extended release 20 meq PO DAILY Qty: 7 0RF Continued dextroamphetamine-amphetamine 20 mg Capsule,Extended Release 24hr 20 mg PO DAILY Date of admission: 07/14/24 10:15 Primary Care Provider: Porter*Perla Admitting Provider: Ronaldo Tobar Attending physician on admission: Ronaldo Tobar Condition: Stable Quality VTE Prophylaxis VTE prophylaxis: mechanical ordered Hospitalist MIPS Heart Failure (Exclusion) Patient has history of Heart Transplant or Left Ventricular Assistive Device?: No IF YES, STOP HERE Heart Failure (Qualifier) Patient has current or prior documentation of LVEF less than or equal to 40%, or mod/servere depressed LVSF?: No IF NO, STOP HERE
[2024-07-16] MEDS: metroNIDAZOLE 500 MG TABLET PO (13:19)
[2024-07-16 14:00] VITALS: BP 111/70; PULSE 69; RESP 20; TEMP 36.6; O2SAT 100
== END 2024-07-16 15:15 | disposition home or self-care (01) ==
LOC: ANHED 10:19 → ANH3MEDSUR 11:08
PROVIDERS: Nurse Practitioner; Admitting Provider General Practice; Emergency Provider Emergency Medicine; PCP Physician Assistant; Visit Provider Internal Medicine
DX: K57.32 Diverticulitis of large intestine without perforation or abscess without bleeding (principal); F90.9 Attention-deficit hyperactivity disorder, unspecified type; F17.290 Nicotine dependence, other tobacco product, uncomplicated; Z98.51 Tubal ligation status; Z79.899 Other long term (current) drug therapy
CPT/HCPCS: 36415; 74177; 80053; 81001; 81025; 83690; 85025; 85027; 96361; 96365; 96366; 96367; 96375; 96376; 99285; A9270; G0378; J0696; J1836; J2270; J2405; J3480; J7030; J7040; Q9967

== ENCOUNTER 2024-09-08 19:16 | Emergency (ER) | payer OTHER, SELFPAY ==
--- NOTE | ~2024-09-08 | CT_ITS ---
EXAMINATION: CT brain wo con DATE: 09/08/2024 20:16 INDICATION: head injury . TECHNIQUE: Computed tomography (CT) of the head was performed without intravenous contrast. The mA wa s adjusted according to patient size. Iterative reconstruction technique was employed. The dose-lengt h product was 681.00 mGy-cm. COMPARISON: MR brain 06/01/2023. FINDINGS: No acute intracranial hemorrhage or extra-axial fluid collection. No hydrocephalus, mass, or herniation. No acute ischemic infarct. Unremarkable dural venous sinus attenuation. No acute osseous abnormality. The aerated spaces are clear. IMPRESSION: No acute intracranial process. Reviewed, dictated and finalized at location K. WAITRESS
--- NOTE | ~2024-09-08 | XR_ITS ---
EXAM: XR elbow RT min 3V DATE: 09/08/2024 20:08 HISTORY: fall/injury . COMPARISON: 08/30/2017. FINDINGS: Normal mineralization. No fracture or dislocation. No lytic or blastic lesion. Joint space s are maintained. No erosion or periosteal change. Soft tissues within normal limits. IMPRESSION: No acute osseous finding in the right elbow. Reviewed, dictated and finalized at location K. STFEEDING EDUCATOR
--- NOTE | ~2024-09-08 | XR_ITS ---
EXAM: XR hip RT 2V w AP pelvis DATE: 09/08/2024 20:08 HISTORY: FALL, PAIN . COMPARISON: X-ray sacrum/coccyx 01/08/2008; CT abdomen pelvis 07/14/2024. FINDINGS: Normal mineralization. No fracture or dislocation. No lytic or blastic lesion. Bilateral c oxa valgus. Bilateral femoral head uncovering. Moderate right and mild left arthritic change. Mild bi lateral femoral head flattening with subchondral sclerosis and lucency. No erosion or periosteal fisher ge. Soft tissues within normal limits. IMPRESSION: No acute osseous finding in the pelvis or right hip. Moderate right and mild left hip art hritis, with findings of coxa valgus, congenital hip dysplasia, and chronic mild femoral head flatten ing, presumably sequela of AVN. Reviewed, dictated and finalized at location K. NT CONVEYOR OPERATOR IMPRESSION: No acute osseous finding in the pelvis or right hip. Moderate right and mild left hip arthritis, with findings of coxa valgus, congenital hip dysp lasia, and chronic mild femoral head flattening, presumably sequela of AVN.
[2024-09-08 19:20] VITALS: BP 125/91; PULSE 70; RESP 17; TEMP 36.6; O2SAT 100
[2024-09-08] MEDS: TETANUS,DIPHTHERIA,AC PERTUSSIS ADULT (0.5 ML) BOOSTRIX IM (20:22)
[2024-09-08 21:30] VITALS: BP 133/87; PULSE 75; RESP 15; TEMP 36.6; O2SAT 100
--- NOTE | 2024-09-08 21:57 | ED.WOUNDLAC ---
HPI - Wound/Laceration General Chief Complaint: Wound/Laceration Stated Complaint: WOUND Time Seen by Provider: 09/08/24 19:51 History of Present Illness HPI narrative: 48-year-old female presents to the emergency department for head injury and laceration to her right elbow after a mechanical [place]. Patient states she was roller-skating when she fell, hit her head but did not lose consciousness. She is not anticoagulated. She is reporting pain to her right elbow with no overlying laceration as well as right hip pain. Denies neck pain, back pain or other injuries acquired. Last Tdap unknown. Related Data Home Medications ?Medication ?Instructions ?Recorded ?Confirmed ?Last Taken ?Type dextroamphetamine-amphetamine ER 20 mg PO DAILY 07/14/24 09/08/24 09/08/24 History 20 mg 24hr capsule,extend release Allergies Allergy/AdvReac Type Severity Reaction Status Date / Time No Known Allergies Allergy Mild Verified 09/08/24 19:38 Review of Systems Review of Systems: All systems reviewed & are unremarkable except as noted in HPI and below PMFSH Past Medical History Medical History Diverticulosis Surgical History Surgical History History of tubal ligation Family History Family History Other Breast cancer Diabetes mellitus Diverticulitis Social History Social History Smoking packs per day: 0.5 Smoking cigarettes per day: 10.0 Years smoked: 20 Smoking pack-years: 10.00 Smoking status: Current every day smoker Additional smoking assessment comments: OCCAS CIGAR, ~1/WEEK Alcohol intake: current Drinks per week: 3 Substance use: never Substance use type: does not use Do You Feel Safe in your Home?: Yes Lack of Transportation: No Lack of Food: Never True Current Housing: I Have Housing Concerned About Future Housing: No Difficulty Paying Gas/Electric Bills: No Difficulty Paying for Meds: No Currently Unemployed: No Education: Master's Degree or Higher Difficulty w/ Childcare or Family Care: No Living arrangements: with family Additional living arrangements comments: & SON Spiritual care concerns: No Exam Narrative: GENERAL: Well-appearing, well-nourished, and in no acute distress. HEAD: Normocephalic, atraumatic. EYES: EOMI. ENT: Nares clear, no rhinorrhea or epistaxis. Mucous membranes moist. NECK: No midline cervical spinous tenderness, crepitus, step-offs or deformities BACK: No midline thoracolumbar spinous tenderness, crepitus, step-offs or deformities CHEST: Clear to auscultation. No respiratory distress. HEART: Regular rate and rhythm. No murmur heard. Normal peripheral pulses. ABDOMEN: Soft, nontender, nondistended, normal active bowel sounds. EXTREMITIES: 1 cm linear laceration overlying the proximal radius, bleeding controlled, no deep structures or foreign bodies visualized, full active and passive range of motion of elbow, radial pulse 2 +, sensation intact. Minimal tenderness over the right hip with no overlying skin changes or deformity, full active and passive range of motion, to pulse 2 +, sensation intact SKIN: Warm, dry, no rash. NEURO: No focal deficits. Alert and oriented x3 Course Vital Signs Vital signs: Vital Signs Temperature 97.8 F 09/08/24 19:20 Pulse Rate 70 09/08/24 19:20 Respiratory Rate 17 09/08/24 19:20 Blood Pressure 125/91 H 09/08/24 19:20 Pulse Oximetry 100 09/08/24 19:20 Oxygen Delivery Room Air 09/08/24 19:20 Temperature 97.8 F 09/08/24 19:20 Pulse Rate 70 09/08/24 19:20 Respiratory Rate 17 09/08/24 19:20 Blood Pressure 125/91 H 09/08/24 19:20 Pulse Oximetry 100 09/08/24 19:20 Oxygen Delivery Room Air 09/08/24 19:20 Procedures Laceration Laceration 1: Date: 09/08/24 Time: 22:00 Site: upper extremity Side (If applicable): right Size (cm): 1 Description: linear Depth: simple, single layer Local Anesthetic: lidocaine 1% and with epi Amount of anesthesia used (mL): 2 Pre-repair: wound explored, irrigated and irrigated extensively ====== Skin Level ====== Skin layer closed with: nylon Size (cm): 4-0 Number of sutures: 2 Technique: simple, interrupted ====== Subcutaneous Layer ====== ====== Muscle Layer ====== ====== Tendon Layer ====== MDM - Wound/Laceration MDM Narrative Medical decision making narrative: 48-year-old female presents to the emergency department for head injury, laceration or elbow and right hip contusion after a mechanical injury that occurred at [facility] prior to arrival. She did not lose consciousness. She is not anticoagulated. Vitals are stable. Exam is significant for the above. CT brain shows no acute intracranial findings. X-ray of the hip and elbow are unremarkable. Laceration irrigated with normal saline and closed with 2 sutures without complications. Tdap updated. Wound care discussed. Advised suture removal in 7 days. Return precautions provided. She is agreeable with the plan verbalized understanding. Discharged in stable condition. Discharge Plan Discharge Clinical Impression: Laceration, Closed head injury, Contusion of right hip Patient Disposition: Home, Self-Care Condition: Stable Instructions: Antibiotic Form, Care For Your Stitches (ED), Laceration (ED) Additional Instructions: You had 2 stitches placed in her right elbow. Please get these removed in 7 days. Return to the emergency department if you develop surrounding redness, drainage, fever, vision changes, focal numbness or weakness or other concerning symptoms. He can take Tylenol ibuprofen as directed [id number] as needed for pain. Patient Language: Greek Prescriptions: No Action dextroamphetamine-amphetamine 20 mg Capsule,Extended Release 24hr 20 mg PO DAILY Follow-up/Referrals: Karen,DELMI Duncan [Primary Care Provider] -
--- OUTSIDE RECORDS SUMMARY | 2024-09-12 10:57 | XMS_ITS | Data Portability ---
Author Organization [facility] [employer], Main Office Address [address] [place] [address] Assessment No assessment recorded. Plan of Treatment Reminders Order Date Submit Date Provider Last Modified By Organization Details Last Modified Time Details Appointments None recorded. Lab CBC w/ auto diff 2022 023 HAIR [facility], [address] [place] [address] 2, [place], [address], 3 10:18:56 CMP, serum or plasma 2022 023 HAIR [facility], [address] [place] [address], [place], [address], 3 10:18:56 C reactive protein, QN, serum or plasma 2022 023 [email or web address] 4 [facility], [address] [place] [address] 2, [place], [address], 3 10:11:43 erythrocyte sedimentati on rate by westergren method 2022 023 [email or web address] 4 [facility], [address] [place] [address] 2, [place], [address], 3 10:11:43 katie neff virus Ab panel, serum 2022 023 [email or web address] 4 [facility], [address] [place] [address], [place], [address], 3 10:11:17 cytomegalov irus (cmv) igg+igm Ab, serum 2022 023 [email or web address] 4 [facility], [address] [facility], [facility] 2, [place], [address], 3 10:11:43 unlisted lab - hantavirus antibodies, naa 2022 023 [email or web address] 4 [facility], [address] [place] [address], [facility] 2, [place], [address], 3 10:11:03 anaplasma phagocytoph ilum + ehrlichia chaffeensis IgG panel, titer, serum 2022 023 [email or web address] 4 [facility], [address] [place] [address], [facility] 2, [place], [address], 3 10:10:04 TSH + free T4, serum 2022 023 [email or web address] [facility], [address] [place] [address] 2, [place], [address], 4 16:01:12 lipid panel, serum 2022 023 [email or web address] [facility], [address] [place] [address], [facility] 2, [place], [address], 4 16:01:13 CMP, serum or plasma 2022 023 [email or web address] [facility], [address] [place] [address], [facility] 2, [place], [address], 4 16:01:13 CBC w/ auto diff 2022 023 [email or web address] [facility], [address] [place] [address], [facility] 2, [place], [address], 4 16:01:13 HbA1c (hemoglobin A1c), blood 2022 023 [email or web address] [facility], [address] [place] [address] 2, [place], [address], 4 16:01:13 Referral None recorded. Procedures None recorded. Surgeries None recorded. Imaging MRI, brain, w/wo contrast - no auth required 2022 023 HAIR [facility], [address], [place] [address], [place], [address], 3 12:35:37 Medication Orders doxycycline hyclate 100 mg capsule 2022 023 [email or web address] [id number], [address] [place], [address], 3 10:21:48 Patient TargetsNo targets recorded. Patient InstructionsNo instructions recorded. Reason for Referral None Reported. Results Created Date Observation Date Name Description Value Unit Range Abnormal Flag Note LastModifiedBy Organization Detail LastModifiedTime 08/09/2008/10/2021 HEMOG LOBIN A1C hemoglobin A1C 5.5 % 4.8-5. 6 Predi abete s: 5.7 - 6.4 Diabe ashly: >6.4 Glyce massiel contr ol for adult s with diabe ashly: <7.0 Not Available [facility] ([facility]) [address] [facility], [place], [address], 08/10/2021 05:09:08 08/09/20 21 08/10/2021 LIPID PANEL W/ CHOL/ HDL RATIO cholesterol, total 134 mg/dL 100-19 9 Not Available [facility] ([facility]) [address] [facility], [place], [address], 08/10/2021 05:09:08 08/09/20 21 08/10/2021 LIPID PANEL W/ CHOL/ HDL RATIO triglyceride s 105 mg/dL 0-149 Not Available [facility] ([facility]) [address] [place], [address], 08/10/2021 05:09:08 08/09/20 21 08/10/2021 LIPID PANEL W/ CHOL/ HDL RATIO HDL cholesterol 59 mg/dL >39 Not Available [facility] ([facility]) [address] [facility], [place], [address], 08/10/2021 05:09:08 08/09/20 21 08/10/2021 LIPID PANEL W/ CHOL/ HDL RATIO VLDL cholesterol cinthya 19 mg/dL 5-40 Not Available [facility] ([facility]) [address] [facility], [place], [address], 08/10/2021 05:09:08 08/09/20 21 08/10/2021 LIPID PANEL W/ CHOL/ HDL RATIO LDL chol calc ([facility]) 56 mg/dL 0-99 Not Available [facility] ([facility]) [address] [facility], [place], [address], 08/10/2021 05:09:08 08/09/20 21 08/10/2021 LIPID PANEL W/ CHOL/ HDL 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 chol/HDL ratio 2.3 ratio 0.0-4. 4 T. Chol/ HDL Ratio Men Women 1/2 Avg.R isk 3.4 3.3 Avg.R isk 5.0 4.4 2X Avg.R isk 9.6 7.1 3X Avg.R isk 23.4 11.0 Not Available [facility] ([facility]) [address] [facility], [place], [address], 08/10/2021 05:09:08 08/09/20 21 08/10/2021 COMP. METAB OLIC PANEL (14) glucose 90 mg/dL 65-99 Not Available [facility] ([facility]) [address] [place], [address], 08/10/2021 05:09:07 08/09/20 21 08/10/2021 COMP. METAB OLIC PANEL (14) BUN 12 mg/dL 6-24 Not Available [facility] ([facility]) [address] [place], [address], 08/10/2021 05:09:07 08/09/20 21 08/10/2021 COMP. METAB OLIC PANEL (14) creatinine 0.71 mg/dL 0.57-1 .00 Not Available [facility] ([facility]) [address] [place], [address], 08/10/2021 05:09:07 08/09/20 21 08/10/2021 COMP. METAB OLIC PANEL (14) eGFR if nonafricn AM 104 mL/mi n/1.7 3 >59 Not Available [facility] ([facility]) [address] [facility], [place], [address], 08/10/2021 05:09:07 08/09/20 21 08/10/2021 COMP. METAB OLIC PANEL (14) eGFR if africn AM 120 mL/mi n/1.7 3 >59 In accor dance with recom garrison godwin from the NKF-A SN Task force , Raymundo is in the proce ss of updat ing its eGFR calcu latio n to the 2020 CKD-E PI creat inine equat ion that estim ates kidne y funct ion witho ut a race varia ble. Not Available [facility] ([facility]) [address] [facility], [place], [address], 08/10/2021 05:09:07 08/09/20 21 08/10/2021 COMP. METAB OLIC PANEL (14) BUN/creatini ne ratio 17 9-23 Not Available [facility] ([facility]) [address] [place], [address], 08/10/2021 05:09:07 08/09/20 21 08/10/2021 COMP. METAB OLIC PANEL (14) sodium 139 mmol/ L 134-14 4 Not Available [facility] ([facility]) [address] [facility] [place], [address], 08/10/2021 05:09:07 08/09/20 21 08/10/2021 COMP. METAB OLIC PANEL (14) potassium 4.2 mmol/ L 3.5-5. 2 Not Available [facility] ([facility]) [address] [facility] [place] [place], [address], 08/10/2021 05:09:07 08/09/20 21 08/10/2021 COMP. METAB OLIC PANEL (14) chloride 102 mmol/ L 96-106 Not Available [facility] ([facility]) [address] [facility] [place], [address], 08/10/2021 05:09:07 08/09/20 21 08/10/2021 COMP. METAB OLIC PANEL (14) carbon dioxide, total 24 mmol/ L 20-29 Not Available [facility] ([facility]) [address] [facility] [place], [address], 08/10/2021 05:09:07 08/09/20 21 08/10/2021 COMP. METAB OLIC PANEL (14) calcium 9.1 mg/dL 8.7-10 .2 Not Available [facility] ([facility]) [address] [facility] [place], [address], 08/10/2021 05:09:07 08/09/20 21 08/10/2021 COMP. METAB OLIC PANEL (14) protein, total 6.8 g/dL 6.0-8. 5 Not Available [facility] ([facility]) [address] [facility] [place], [address], 08/10/2021 05:09:07 08/09/20 21 08/10/2021 COMP. METAB OLIC PANEL (14) albumin 4.1 g/dL 3.8-4. 8 Not Available [facility] ([facility]) [address] [facility] [place], [address], 08/10/2021 05:09:07 08/09/20 21 08/10/2021 COMP. METAB OLIC PANEL (14) globulin, total 2.7 g/dL 1.5-4. 5 Not Available [facility] ([facility]) [address] [facility] [place], [address], 08/10/2021 05:09:07 08/09/20 21 08/10/2021 COMP. METAB OLIC PANEL (14) A/G ratio 1.5 1.2-2. 2 Not Available [facility] ([facility]) [address] [facility] [place], [address], 08/10/2021 05:09:07 08/09/20 21 08/10/2021 COMP. METAB OLIC PANEL (14) bilirubin, total 0.7 mg/dL 0.0-1. 2 Not Available [facility] ([facility]) [address] [facility] [place], [address], 08/10/2021 05:09:07 08/09/20 21 08/10/2021 COMP. METAB OLIC PANEL (14) alkaline phosphatase 66 IU/L 44-121 Ple ase note refer ence inter huber wallis e Not Available [facility] ([facility]) [address] [facility] [place], [address], 08/10/2021 05:09:07 08/09/20 21 08/10/2021 COMP. METAB OLIC PANEL (14) AST (SGOT) 18 IU/L 0-40 Not Available [facility] ([facility]) [address] [place], [address], 08/10/2021 05:09:07 08/09/20 21 08/10/2021 COMP. METAB OLIC PANEL (14) ALT (SGPT) 16 IU/L 0-32 Not Available [facility] ([facility]) [address] [place], [address], 08/10/2021 05:09:07 08/09/20 21 08/10/2021 CBC WITH DIFFE RENTI AL/PL ATELE T WBC 6.6 x10e3 /uL 3.4-10 .8 Not Available [facility] ([facility]) [address] [facility], [place], [address], 08/10/2021 05:09:07 08/09/20 21 08/10/2021 CBC WITH DIFFE RENTI AL/PL ATELE T RBC 4.53 x10e6 /uL 3.77-5 .28 Not Available [facility] ([facility]) [address] [facility], [place], [address], 08/10/2021 05:09:07 08/09/20 21 08/10/2021 CBC WITH DIFFE RENTI AL/PL ATELE T hemoglobin 14.2 g/dL 11.1-1 5.9 Not Available [facility] ([facility]) [address] [facility], [place], [address], 08/10/2021 05:09:07 08/09/20 21 08/10/2021 CBC WITH DIFFE RENTI AL/PL ATELE T hematocrit 42.4 % 34.0-4 6.6 Not Available [facility] ([facility]) [address] [place], [address], 08/10/2021 05:09:07 08/09/20 21 08/10/2021 CBC WITH DIFFE RENTI AL/PL ATELE T MCV 94 fL 79-97 Not Available [facility] ([facility]) [address] [place], [address], 08/10/2021 05:09:07 08/09/20 21 08/10/2021 CBC WITH DIFFE RENTI AL/PL ATELE T MCH 31.3 pg 26.6-3 3.0 Not Available [facility] ([facility]) [address] [place], [address], 08/10/2021 05:09:07 08/09/20 21 08/10/2021 CBC WITH DIFFE RENTI AL/PL ATELE T MCHC 33.5 g/dL 31.5-3 5.7 Not Available [facility] ([facility]) [address] [facility], [place], [address], 08/10/2021 05:09:07 08/09/20 21 08/10/2021 CBC WITH DIFFE RENTI AL/PL ATELE T RDW 12.1 % 11.7-1 5.4 Not Available [facility] ([facility]) [address] [facility], [place], [address], 08/10/2021 05:09:07 08/09/20 21 08/10/2021 CBC WITH DIFFE RENTI AL/PL ATELE T platelets 277 x10e3 /uL 150-45 0 Not Available [facility] ([facility]) [address] [facility], [place], [address], 08/10/2021 05:09:07 08/09/20 21 08/10/2021 CBC WITH DIFFE RENTI AL/PL ATELE T neutrophils 49 % not estab. Not Available [facility] ([facility]) [address] [facility], [place], [address], 08/10/2021 05:09:07 08/09/20 21 08/10/2021 CBC WITH DIFFE RENTI AL/PL ATELE T lymphs 38 % not estab. Not Available [facility] ([facility]) [address] [facility], [place], [address], 08/10/2021 05:09:07 08/09/20 21 08/10/2021 CBC WITH DIFFE RENTI AL/PL ATELE T monocytes 7 % not estab. Not Available [facility] ([facility]) [address] [place], [address], 08/10/2021 05:09:07 08/09/20 21 08/10/2021 CBC WITH DIFFE RENTI AL/PL ATELE T eos 5 % not estab. Not Available [facility] ([facility]) [address] [facility], [place], [address], 08/10/2021 05:09:07 08/09/20 21 08/10/2021 CBC WITH DIFFE RENTI AL/PL ATELE T basos 1 % not estab. Not Available [facility] ([facility]) [address] [facility], [place], [address], 08/10/2021 05:09:07 08/09/20 21 08/10/2021 CBC WITH DIFFE RENTI AL/PL ATELE T immature cells neurology director Not Available [facility] ([facility]) [address] [facility], [place], [address], 08/10/2021 05:09:07 08/09/20 21 08/10/2021 CBC WITH DIFFE RENTI AL/PL ATELE T neutrophils (absolute) 3.3 x10e3 /uL 1.4-7. 0 Not Available [facility] ([facility]) [address] [place], [address], 08/10/2021 05:09:07 08/09/20 21 08/10/2021 CBC WITH DIFFE RENTI AL/PL ATELE T lymphs (absolute) 2.5 x10e3 /uL 0.7-3. 1 Not Available [facility] ([facility]) [address] [place], [address], 08/10/2021 05:09:07 08/09/20 21 08/10/2021 CBC WITH DIFFE RENTI AL/PL ATELE T monocytes(ab solute) 0.5 x10e3 /uL 0.1-0. 9 Not Available [facility] ([facility]) [address] [place], [address], 08/10/2021 05:09:07 08/09/20 21 08/10/2021 CBC WITH DIFFE RENTI AL/PL ATELE T eos (absolute) 0.3 x10e3 /uL 0.0-0. 4 Not Available [facility] ([facility]) [address] [facility], [place], [address], 08/10/2021 05:09:07 08/09/20 21 08/10/2021 CBC WITH DIFFE RENTI AL/PL ATELE T baso (absolute) 0.0 x10e3 /uL 0.0-0. 2 Not Available [facility] ([facility]) [address] [facility], [place], [address], 08/10/2021 05:09:07 08/09/20 21 08/10/2021 CBC WITH DIFFE RENTI AL/PL ATELE T immature granulocytes 0 % not estab. Not Available [facility] ([facility]) [address] [facility], [place], [address], 08/10/2021 05:09:07 08/09/20 21 08/10/2021 CBC WITH DIFFE RENTI AL/PL ATELE T immature grans (abs) 0.0 x10e3 /uL 0.0-0. 1 Not Available [facility] ([facility]) [address] [facility], [place], [address], 08/10/2021 05:09:07 08/09/20 21 08/10/2021 CBC WITH DIFFE RENTI AL/PL ATELE T NRBC neurology director Not Available [facility] ([facility]) [address] [place], [address], 08/10/2021 05:09:07 08/09/2008/10/2021 CBC WITH DIFFE RENTI AL/PL ATELE T hematology comments: neurology director Not Available [facility] ([facility]) [address] [place], [address], 08/10/2021 05:09:07 08/09/2008/10/2021 TSH+F REE T4 TSH 0.860 uIU/m L 0.450- 4.500 Not Available [facility] ([facility]) [address] [place], [address], 08/10/2021 05:09:07 08/09/20 21 08/10/2021 TSH+F REE T4 T4,free(dire ct) 1.16 NG/dL 0.82-1 .77 Not Available [facility] ([facility]) [address] [place], [address], 08/10/2021 05:09:07 08/09/2008/10/2021 URINA LYSIS , ROUTI NE W/RFX specific gravity 1.021 1.005- 1.030 Not Available [facility] ([facility]) [address] [place], [address], 08/10/2021 05:09:06 08/09/20 21 08/10/2021 URINA LYSIS , ROUTI NE W/RFX pH 5.5 5.0-7. 5 Not Available [facility] ([facility]) [address] [place], [address], 08/10/2021 05:09:06 08/09/20 21 08/10/2021 URINA LYSIS , ROUTI NE W/RFX urine-color yellow yellow Not Available [facility] ([facility]) [address] [place], [address], 08/10/2021 05:09:06 08/09/2008/10/2021 URINA LYSIS , ROUTI NE W/RFX appearance clear clear Not Available [facility] ([facility]) [address] [place], [address], 08/10/2021 05:09:06 08/09/20 21 08/10/2021 URINA LYSIS , ROUTI NE W/RFX WBC esterase negati ve negati ve Not Available [facility] ([facility]) [address] [facility], [place], [address], 08/10/2021 05:09:06 08/09/20 21 08/10/2021 URINA LYSIS , ROUTI NE W/RFX protein negati ve negati ve/tra ce Not Available [facility] ([facility]) [address] [facility], [place], [address], 08/10/2021 05:09:06 08/09/2008/10/2021 URINA LYSIS , ROUTI NE W/RFX glucose negati ve negati ve Not Available [facility] ([facility]) [address] [place], [address], 08/10/2021 05:09:06 08/09/20 21 08/10/2021 URINA LYSIS , ROUTI NE W/RFX ketones negati ve negati ve Not Available [facility] ([facility]) [address] [facility], [place], [address], 08/10/2021 05:09:06 08/09/2008/10/2021 URINA LYSIS , ROUTI NE W/RFX occult blood negati ve negati ve Not Available [facility] ([facility]) [address] [place], [address], 08/10/2021 05:09:06 08/09/2008/10/2021 URINA LYSIS , ROUTI NE W/RFX bilirubin negati ve negati ve Not Available [facility] ([facility]) [address] [place], [address], 08/10/2021 05:09:06 08/09/20 21 08/10/2021 URINA LYSIS , ROUTI NE W/RFX urobilinogen ,semi-qn 0.2 mg/dL 0.2-1. 0 Not Available [facility] ([facility]) [address] [place], [address], 08/10/2021 05:09:06 08/09/20 21 08/10/2021 URINA LYSIS , ROUTI NE W/RFX nitrite, urine negati ve negati ve Not Available [facility] ([facility]) [address] [facility], [place], [address], 08/10/2021 05:09:06 08/09/20 21 08/10/2021 URINA LYSIS , ROUTI NE W/RFX microscopic examination commen t Micro scopi c not indic ated and not perfo rmed. Not Available [facility] ([facility]) [address] [facility], [place], [address], 08/10/2021 05:09:06 12/29/19 22 12/27/2021 XR, lumba r spine No observ ation record ed. [id number] Not Available 10/19/2022 21:48:41 12/29/19 22 12/27/2021 XR, hip + pelvi s, bilat eral No observ ation record ed. [id number] Not Available 10/19/2022 21:48:41 02/03/20 22 02/02/2022 colon oscop y scree frederick (PROC ) No observ ation record ed. [id number] Jay Duffy MD [address], [place], [address], 10/19/2022 21:48:41 06/07/20 22 05/31/2022 MAMMO , scree frederick, digit al, bilat eral No observ ation record ed. [id number] [facility] (Human Resources) [address], [place], [address], 10/19/2022 21:48:41 01/21/20 23 01/19/2023 MAMMO , diagn ostic , digit al, unila teral No observ ation record ed. [email or web address], [place], [address], 01/20/2023 14:23:35 06/01/20 23 06/01/2023 MRI, brain , w/wo contr ast No observ ation record ed. [email or web address] [facility] [address], [place], [address], 08/23/2023 16:01:43 Result Notes None recorded. Problems Name Problem SNOMED Code Status Onset Date Resolution Date Notes Provider Name and Address Organization Details Recorded Time Bilateral hip joint pain 8479376223896 9100 Active 2021 Not Available [facility] 3 21:47:44 Lumbago with sciatica 912041881 Active 2021 Not Available [facility] 3 21:47:44 Low back pain 083516622 Active 2021 Not Available [facility] 3 21:47:44 Acid reflux 269485988 Active 2021 Not Available [facility] 3 21:47:44 Cervical lymphadeno kirsten 437023730 Active 2022 RICKY Fair [address], [address], [place], [address] , [employer] 3 15:23:47 Atypical facial pain 78178740 Active 2022 RICKY Fair [address], [address], [place], [address] , [employer] [facility] 3 15:26:02 Sore throat 747467670 Active 2022 RICKY Fair [address], [address], [place], [address] , [employer] [facility] 3 15:26:08 Gastroesop hageal reflux disease without esophagiti s 820010806 Active 2022 RICKY Fair [address], [address], [place], [address] , [employer] [facility] 3 10:20:24 Headache 31866672 Active 2022 RICKY [address], [address], [place], [address] , [facility] [employer] [facility] [employer] 3 10:21:16 Closed injury of head 896940835501 Active 2022 RICKY [address], [address], [place], [address] , [facility] [employer] [facility] [employer] 3 10:21:31 Magnetic resonance imaging of brain abnormal 147753694 Active 2022 RICKY Fair [address], [address], [place], [address] , [employer] [facility] [employer] 16:21:28 Problem Notes None recorded. Procedures Surgical History Date Name Laterality Status Provider Name and Address Organization Details Recorded Time 0 D&c of cervical stump completed Not Available [facility] 10/19/2022 21:47:22 cervical biopsy completed Not Available [facility] 10/19/2022 21:47:22 ligation of bilateral fallopian tubes completed Not Available [facility] 10/19/2022 21:47:22 Imaging Results Imaging Date Name Status LastModified by Organiz ation Details LastModified Time 12/27/2021 XR, lumbar spine completed [id number] Information not available 10/19/2022 21:48:41 12/27/2021 XR, hip + pelvis, bilateral completed [id number] Information not available 10/19/2022 21:48:41 05/31/2022 MAMMO, screening, digital, bilateral completed [id number] [facility] (Human Resources) [address], [place], [address], 10/19/2022 21:48:41 02/02/2022 colonoscopy screening (PROC) completed [id number] Jay Duffy MD [address], [place], [address], 10/19/2022 21:48:41 01/19/2023 MAMMO, diagnostic, digital, unilateral completed [email or web address], [place], [address], 01/20/2023 14:23:35 06/01/2023 MRI, brain, w/wo contrast completed [email or web address] [facility] [address], [place], [address], 08/23/2023 16:01:43 Procedure Notes None recorded. Medical Equipment None Reported. Allergies No known drug allergies Medications Name Sig Start Date Stop Date Status Note LastModified by Organization Details LastModified Time doxycycline hyclate 100 mg capsule TAKE 1 CAPSULE BY MOUTH TWICE A DAY WITH MEALS 05/29 completed Not Available Not Available Not Available ibuprofen 800 mg tablet 12/27 completed Not Available Not Available Not Available methylpheni date 10 mg tablet TAKE 1 TABLET BY MOUTH TWICE A DAY active Not Available Not Available No t Available hydrocodone 5 mg-acetamin ophen 325 mg tablet TAKE 1 T PO Q 4 H PRN active Not Available Not Available No t Available alprazolam 0.5 mg tablet TAKE 1 TABLET BY MOUTH NIGHT BEFOR APPOINTME NT AND 1 TABLET 1 HOUR BEFORE APPOINTME NT 12/27 completed Not Available Not Available Not Available pantoprazol e 40 mg tablet,joyce yed release Take 1 tablet every day by oral route in the morning. active Not Available Not Available No t Available buspirone 10 mg tablet TAKE 1 TABLET BY MOUTH TWICE A DAY active Not Available Not Available No t Available prednisone 50 mg tablet TAKE 1 TABLET BY MOUTH EVERY DAY X3 DAYS 05/12 completed Not Available Not Available Not Available amoxicillin 875 mg-potassiu m clavulanate 125 mg tablet TAKE 1 TABLET BY MOUTH EVERY 12 HOURS FOR 7 DAYS 05/12 completed Not Available Not Available Not Available buspirone 15 mg tablet TAKE 1 TABLET BY MOUTH TWICE A DAY active Not Available Not Available No t Available [employer] COVID-19 Antigen Home Test kit 05/12 completed Not Available Not Available Not Available Vitals Date Recorded Body mass index (BMI) Body height Oxygen saturation Oxygen saturation in Arterial blood by Pulse oximetry Heart rate Body temperature Body weight Systolic blood pressure Diastolic blood pressure Provider Name and Address Organization Details Last Updated DateTime 1 24.7 kg/m2 170.18 cm 98 % 98 % 77 /min 98.5 [degF] 68814.5 2 g 112 mm[Hg] 70 mm[Hg] Not Available [facility] 3 21:47:38 Date Recorded Body mass index (BMI) Body height Oxygen saturation Oxygen saturation in Arterial blood by Pulse oximetry Heart rate Respiratory rate Body temperature Body weight Systolic blood pressure Diastolic blood pressure Provider Name and Address Organization Details Last Updated DateTime 2 25.9 kg/m2 170.18 cm 98 % 98 % 79 /min 16 /min 97.9 [degF] 13511.1 8 g 120 mm[Hg] 80 mm[Hg] Not Available [facility] 3 21:47:38 Date Recorded Body height Oxygen saturation Oxygen saturation in Arterial blood by Pulse oximetry Heart rate Respiratory rate Body temperature Systolic blood pressure Diastolic blood pressure Provider Name and Address Organization Details Last Updated DateTime 2 170.18 cm 98 % 98 % 79 /min 16 /min 97.6 [degF] 124 mm[Hg] 76 mm[Hg] Not Available [facility] 3 21:47:38 Date Recorded Body height Body temperature Body mass index (BMI) Body weight Heart rate Oxygen saturation Oxygen saturation in Arterial blood by Pulse oximetry Systolic blood pressure Diastolic blood pressure Provider Name and Address Organization Details Last Updated DateTime 3 170.18 cm 97.8 [degF] 19.6 kg/m2 98309.0 5 g 88 /min 99 % 99 % 138 mm[Hg] 78 mm[Hg] SLOANE Skinner [facility] [employer] [facility] 3 14:57:59 Date Recorded Body height Body weight Body temperature Heart rate Oxygen saturation Oxygen saturation in Arterial blood by Pulse oximetry Systolic blood pressure Diastolic blood pressure Provider Name and Address Organization Details Last Updated DateTime 3 170.18 cm 17968.9 3 g 97.4 [degF] 64 /min 99 % 99 % 116 mm[Hg] 70 mm[Hg] SLOANE Skinner [place] [employer] [facility] 3 10:02:27 Date Recorded Body mass index (BMI) Provider Name and Address Organization Details Last Updated DateTime 05/29/2023 21.9 kg/m2 RICKY Fair [facility] [address], [place], [address], [facility] [employer] 05/29/2023 10:07:17 Social History Question Answer Notes LastModified by Organizat ion Details LastModified Time Tobacco Smoking Status Current Every Day Smoker Nora Gilliland RN null, [facility] [employer] [facility] 05/29/2023 09:58:46 Do You Have An Advance Directive? No [id number] Information not available 10/19/2022 What Is Your Level Of Alcohol Consumption? Moderate [id number] Information not available 10/19/2022 If You Are , What Was Your Level Of Alcohol Consumption Prior To ? None [email or web address] Information not available 05/29/2023 Do You Wear A Helmet When Biking? No [email or web address] Information not available 05/29/2023 What Is Your Level Of Caffeine Consumption? Moderate [id number] Information not available 10/19/2022 In The 14 Days Before Symptom Onset, Have You Had Close Contact With A Laboratory-confirm ed COVID-19 While That Case Was Ill? No [email or web address] Information n ot available 05/29/2023 In The 14 Days Before Symptom Onset, Have You Had Close Contact With A Person Who Is Under Investigation For COVID-19 While That Person Was Ill? No [email or web address] Information not available 05/29/2023 What Type Of Diet Are You Following? REGULAR [id number] Information not available 10/19/2022 What Is The Highest Grade Or Level Of School You Have Completed Or The Highest Degree You Have Received? [id number] [email or web address] Information not available 05/29/2023 What Is Your Occupation? [employer] [email or web address] Information not available 05/29/2023 Have There Been Any Changes To Your Family Or Social Situation? No [email or web address] Information no t available 05/29/2023 Are There Any Guns Present In Your Home? Yes [email or web address] Information not available 05/29/2023 Do You Use Insect Repellent Routinely? Yes [email or web address] Information not available 05/29/2023 Do You Have A Medical Power Of Welfare Manager? No [email or web address] Information not available 05/29/2023 Have You Ever Been Counseled For Unhealthy Alcohol Use? No [email or web address] Information not available 05/29/2023 What Is Your Relationship Status? [id number] Information not available 10/19/2022 Do You Use Your Seat Belt Or Car Seat Routinely? Yes [email or web address] Information not available 05/29/2023 Do You Have Smoke And Carbon Monoxide Detectors In Your Home? Yes [email or web address] Information not available 05/29/2023 Do You Feel Stressed (tense, Restless, Nervous, Or Anxious, Or Unable To Sleep At Night)? [id number] [email or web address] Information not available 05/29/2023 Do You Use Any Illicit Or Recreational Drugs? No [email or web address] Information not available 05/29/2023 Do You Use Sunscreen Routinely? Yes [email or web address] Information not available 05/29/2023 Has Tobacco Cessation Counseling Been Provided? No [email or web address] Information not available 05/29/2023 Have You Recently Traveled Abroad? No [email or web address] Information not available 05/29/2023 Do You Have Any Dietary Restrictions? No [email or web address] Information not available 05/29/2023 Do You Or Have You Ever Used Any Other Forms Of Tobacco Or Nicotine? No [email or web address] Information not available 05/29/2023 Sex: Unknown Functional Status Question Answer Note LastModified by [email or web address] Details LastModified Time What is your exercise level? Heavy [id number] Information not available 10/19/2022 Mental Status None recorded. Family History Relationship Description Onset Age of this Age Resolved Age Notes LastModified by Organization Details LastModified Time Maternal Grandmother Type 1 diabetes mellitus [id number] Not available 10/19/2022 21:47:23 Maternal Grandmother Malignant tumor of colon [id number] Not available 10/19/2022 21:47:23 Father General health good [id number] Not available 10/19/2022 21:47:23 Medical History No medical history recorded. Gynecological History Statement/Question Response Menses Monthly Y Date of Last Pap 12/19/2018 Date of Last Mammogram 07/20/2020 Current Control Method Tubal Ligat ion Sexually Active? Y Obstetrics History GPAL:G 1 P 0 0 0 1 Type Value Living 1 Total 1 Past Encounters Encounter ID Performer Location Encounter Start Date Encounter Closed Date Diagnosis/Indication Diagnosis SNOMED-CT Code Diagnosis ICD10 Code Diagnosis Note [id number] [facility] [address] [place] [address] 05/17/2021 00:00:00 05/17/2021 21:10:21 [id number] [facility] [address] [place] [address] 12/27/2021 00:00:00 12/29/2021 09:07:29 [id number] [facility] [address] [place] [address] 05/23/2022 00:00:00 06/20/2022 20:02:55 [id number] RICKY Fair [facility] [address] [place] [address] 05/04/2023 14:50:46 05/04/2023 15:36:40 Tick bite 72296836 W57.XXXA there were multiple ticks pulled 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 start empiric doxy 100mg bid course and check tick-borne illness panel. Cervical lymphadenopathy 843008974 R59.0 screening CBC, CMP, CRP, ESR, EBV panel, CMV and hantavirus antibodies . Atypical facial pain 713 23108 G50.1 noted acutely with this illness presentati on. Sore throat 839938875 J0 2.9 reported symptom, was negative for strep, flu, covid. [id number] [facility] [address] [place] [address] 05/29/2023 09:58:03 05/29/2023 10:25:40 Adult health examination 241681773 Z00.00 well exam completed with discussion about new findings Gastroesop hageal reflux disease without esophagitis 266737243 K21.9 stable on PPI therapy Cholesterol screening 27 9497427 Z13.220 fasting lipids are due Diabetes m ellitus screening 440221971 Z13.1 diabetes screening is due Thyroid di sorder screening 156006680 Z13.29 TFT screening due Headache 00503571 R51.9 MRI brain w/wo as ordered above Closed injury of head 45 02802597 06 S09.90XA 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 She is having daily headaches that is newer the last few months. we will proceed with MRI brain w/wo contrast for baseline. Long-term drug therapy 905288910 Z79.899 Health Concerns Section Related Observation LastModified by Organization Detai ls LastModified Time None Recorded Concern Status LastModified by Organization Details LastModified Time None Recorded Advance Directives Directive N: Payers Encounter Date Sequence Insurance Name Policy Number Policy [place] Covered Member ID [place] Member ID Guarantor Name 05/04/2023 1 [facility] [id number] Elvia C Gaston [id number] Elviacelia Feldman 05/29/2023 1 [facility] [id number] Elvia C Gaston [id number] Elvia Carly Feldman Notes Date Note Type Note Provider Name and Address Organization Details Recorded Time 05/17/2021 text/html Generic HPI TemplateReported bypatient.Notes:Pt is here today for her wellness exam, doing fine no complaints Not Available [facility] [employer] 05/17/2021 21:10:21 12/27/2021 text/html Reflux/GERDRepor luke bypatient.Symptomsasy mptomatic; no difficulty swallowing; no postprandial pain; heartburn; with acid / burning taste;pain swallowing (odynophagia) Quality:burning Severity:discomfort: 5/10;worsening Duration:present for 1-6 months Onset/Timing:daily; continuous; still present; occurs upon awakening Context:no drug/alcohol abuse; no drug alcohol withdrawal; not related to food/drink;smoker PPD; related to stress (unsure but there has been stress lately) Alleviating Factors:nothing helps (but only tried tums a couple times and it didnt help) Aggravating Factors:alcohol use Associated Symptoms:no hoarseness; no food getting stuck; no belching/burping; no vomiting; not vomiting blood; no regurgitation; no shortness of breath; no chest pain; no heartburn; no difficulty swallowing; no decreased appetite; no weight loss; no dental erosion; no early satiety; no halitosis;frequent coughing;feels like fullness/mass in throat;pain when swallowing;bad taste;black/tarry stools(sometimes there was blood too.);fatigue;throat pain;bloating Not Available [facility] 12/29/2021 09:07:29 05/23/2022 text/html Reflux/GERDRepor luke bypatient.Symptomsasy mptomatic; no difficulty swallowing; no pain swallowing; no postprandial pain Severity:improving Context:non-smoker; no drug/alcohol abuse; no drug alcohol withdrawal; not related to food/drink Associated Symptoms:no frequent coughing; no feeling of fullness/mass in throat; no hoarseness; no food getting stuck; no belching/burping; no nausea; no vomiting; not vomiting blood; no regurgitation; no shortness of breath; no chest pain; no heartburn; no difficulty swallowing; no pain when swallowing; no bad taste; no decreased appetite; no weight loss; no black/tarry stools; no fatigue; no throat pain; no dental erosion; no bloating; no early satiety; no halitosisNotes:pt stated symptoms are gone Not Available [facility] 06/20/2022 20:02:55 05/04/2023 text/html Generic HPI TemplateReported bypatient.Notes:pt here for follow up with swollen lymph nodes and virus checked at [facility] on 04/18/23. specific virus not identified. she feels ill and just something is off overall. lymph nodes in the neck are not normal for her. no other family members ill. [place] in [place] for days and there were rats present in the wilderness and rat feces was present in campsite areas, bedding, etc. pt is concerned about possible exposures from this. she also had significant tick exposure, pulling countless off her at times. Her illness start around 2 weeks after she returned home. 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) Alleviating factors:nothing gives relief Associated Symptoms:no nausea; no vomiting; no fever; no nasal congestion/discharge; tearing/watery eyes; no slurred speech; no preceeding aura; no double vision; normal feeling/sensation; no dizziness; no hearing lossReflux/GERDReport ed bypatient.Severity:im proving Context:non-smoker; no drug/alcohol abuse; no drug alcohol withdrawal; not related to food/drink Associated Symptoms:no frequent coughing; no feeling of fullness/mass in throat; no hoarseness; no food getting stuck; no belching/burping; no vomiting; not vomiting blood; no regurgitation; no shortness of breath; no chest pain; no heartburn; no difficulty swallowing; no pain when swallowing; no bad taste; no decreased appetite; no weight loss; no black/tarry stools; no fatigue; no throat pain wellness RICKY Fair [address] [facility], [facility] [address], [place], [address], [facility] 06/08/2023 16:20:52 OBGyn Episode No OBEpisode recorded.
--- OUTSIDE RECORDS SUMMARY | 2024-09-12 10:58 | XMS_ITS | Continuity of Care Document ---
Author Organization [facility] Address [address] [place] [address] Phone Care Team Providers Care Cigar Inspector Name Role Phone Eder Pantoja MD Unavailable Unavailable Allergies, Adverse Reactions, Alerts Substance Reaction Status Criticality No Known Allergies Active No Inform ation Procedures Procedure Date PREV VISIT, NEW, AGE 18-39 Advance Directives Directive Yes / No Effective Date File Name No Information Encounters Encounter Description Practice Location Reason(s) For Visit Diagnoses Date Provider Providers Copied on Encounter [facility], [address] [place] [address] [place], [id number], tel:[phone] [facility] No Information Kit Gaines. [facility] [place], [id number], [place]. tel:[phone] Referring Provider: Eder Pantoja, [address] [place] [address], [id number]. tel:[phone] PREV VISIT, NEW, AGE 18-39 [facility], [address] [place] [address] [address] [place], [place], [id number], tel:[phone] [facility] Physical (chief complaint) Routine Medical ExamRoutine Medical Exam Kit Gaines. [facility] [place], [id number], [place]. tel:[phone] Referring Provider: Eder Pantoja, [address] [place], [place], [id number]. tel:[phone] Family History Family Member Type Diagnosis Age At Onset Brother Problem (finding) Alive and well Father Problem (finding) Alive and well Mother Problem (finding) Alive and well Payers Payer name Insurance type Covered republican ID Authoriza tion(s) No Information Social History Type Description Quantity Date Captured Comments Sex Female Smoking Status No Information Chief Complaint And Reason For Visit No Information Plan Of Treatment Date Type Action Status Goal Tobacco cessation counseling completed History Of Present Illness Encounter Date Complaint History Of Prese nt Illness No Information Instructions Date Instruction Additional Infor mation No Information Assessments Type Assessment Date No Information
--- OUTSIDE RECORDS SUMMARY | 2024-09-12 10:58 | XMS_ITS | Clinical Summary ---
Author Organization [facility] Address [address] [address] [place] [address] Phone Care Team Providers Care Laborer Road Name Role Phone Unavailable Primary Care Provider Unavailabl e Allergies No known active allergies Medications amphetamine-dex troamphetamine (Adderall XR) 20 mg Extended Release 24 hour capsule Take 1 Capsule (20 mg) by mouth daily in the morning 30 Capsule 08/23/2024 12:26 PM GLASS ENGRAVER 4 Active amphetamine-dex troamphetamine (Adderall XR) 20 mg Extended Release 24 hour capsule Take 1 Capsule (20 mg) by mouth daily in the morning. 30 Capsule 07/24/2024 4:05 PM GLASS ENGRAVER 4 08/16/20 24 Discontinu ed(Reorder ) Social History Tobacco Use Types Packs/Day Years Used Date Smoking Tobacco: Never Assessed Comments Unknown Sex and Gender Information Value Date Recorded Sex Assigned at Not on file Legal Sex Female 11:59 AM CDT Gender Identity Not on file Sexual Orientation Not on file Plan of Treatment Health Maintenance Due Date Last Done Comments DTAP/TDAP/TD VACCINES (1 - Tdap) 12/22/1995 HEPATITIS B VACCINES (1 of 3 - 19+ 3-dose series) 12/22/1995 CERVICAL CANCER SCREENING 2006 BREAST CANCER SCREENING 2016 COLORECTAL SCREENING 2021 Colorectal Cancer Screening 2021 FIT-DNA Q 3 years 2021 FIT/FOBT Q 1 year 2021 Flex Sig/CT Colonography Q 5 years 2021 INFLUENZA VACCINE (#1) 2024 PNEUMOCOCCAL VACCINE 0-64 YEARS Aged Out No longer eligible based on patient's age to complete this topic Insurance [employer]
== END 2024-09-08 22:04 | disposition home or self-care (01) ==
PROVIDERS: Emergency Provider Physician Assistant; PCP Physician Assistant
DX: S09.90XA Unspecified injury of head, initial encounter (principal); S51.011A Laceration without foreign body of right elbow, initial encounter; S70.01XA Contusion of right hip, initial encounter; Z23 Encounter for immunization; F17.290 Nicotine dependence, other tobacco product, uncomplicated; V00.121A Fall from non-in-line roller-skates, initial encounter; Y93.51 Activity, roller skating (inline) and skateboarding
CPT/HCPCS: 12001; 70450; 73080; 73502; 90471; 90715; 99284

== ENCOUNTER 2024-09-11 16:33 | Outpatient (CLI) | payer OTHER, SELFPAY ==
--- NOTE | ~2024-09-11 | XR_ITS ---
EXAMINATION: XR_[id number]_CR DATE: 09/11/2024 16:51 INDICATION: Paresthesias of right upper limb. TECHNIQUE: 3 views of cervical spine were obtained. COMPARISON: None. FINDINGS: There is kyphosis of upper cervical spine. Vertebral body heights are normal. There is mode rately decreased disc height at C5-C6 and mildly decreased disc height at C6-C7. There is multilevel facet joint osteoarthritis, moderate on the right at C4-C5 and C5-C6 and bilaterally at C7-T1. There is mild central canal stenosis at C5-C6. No prevertebral soft tissue swelling. IMPRESSION: 1. Moderate cervical spondylosis. Reviewed, dictated and finalized at location B. T CARE PROVIDER
--- OUTSIDE RECORDS SUMMARY | 2024-09-13 03:19 | XMS_ITS | Data Portability ---
Author Organization [facility] Address [address] [place] [address] Care Team Providers Care Pattern Chart Writer Name Role Phone SAURABH REECE Primary Care Provider Unavailab le Assessment Encounter Date Assessment Date Assessment LastModified by Organization Details LastModified Time 08/22/2024 08/22/2024 Mammogram yearly UTD colonoscopy UTD a few years ago [email or web address] Not available 08/22/2024 10:00:25 Plan of Treatment Reminders Order Date Submit Date Provider Last Modified By Organization Details Last Modified Time Details Appointments None recorded. Lab TSH + free T4, serum 2024 025 [facility], [address], [place], [address], 5 16:50:58 lipid panel, serum 2024 [facility], [address], [place], [address], 5 16:49:37 CBC w/ auto diff 2024 025 DEXMA [facility], [place], [address], 5 16:50:26 CMP, serum or plasma 2024 025 DEXMA [facility], [address], [place], [address], 5 16:49:48 vitamin B12, serum 2024 025 [facility] [employer] [facility], [address], [place], [address], 5 16:50:35 HbA1c (hemoglob in A1c), blood 2024 025 [facility] [employer] [facility], [address], [place], [address], 5 16:50:07 Referral None recorded. Procedures None recorded. Surgeries None recorded. Imaging XR, cervical spine, 2 or 3 view 2024 025 [facility] [address] [place] [address], [address], 5 18:12:16 Medication Orders None recorded. Patient TargetsNo targets recorded. Patient InstructionsNo instructions recorded. Reason for Referral None Reported. Results Created Date Observation Date Name Description Value Unit Range Abnormal Flag Note LastModifiedBy Organization Detail LastModifiedTime 09/09/19 25 09/08/2024 CT, head, w/o contr ast No observ ation record ed. [address] [address], [place], [address], 09/09/2024 10:23:45 09/09/19 25 09/08/2024 XR, hip, bilat eral No observ ation record ed. [address], [address], 09/11/2024 14:53:02 09/11/19 25 09/11/2024 XR, cervi cinthya spine , 2 or 3 view No observ ation record ed. [address], [address], 09/12/2024 08:55:34 Result Notes None recorded. Problems Name Problem SNOMED Code Status Onset Date Resolution Date Notes Provider Name and Address Organization Details Recorded Time Body mass index 20-24 - normal 250397944 Active 2024 Les Holder MA null, [place] - [place] 5 09:41:41 Long-term drug therapy Active 2024 RICKY Fair Attn: Accountmarie g,[address] [facility], [place], [address], [facility] - [facility] 5 09:47:51 Family history of cancer of colon 551907332 Active 2024 RICKY Fair Attn: Accountin g,[address] [facility], [place], [address], [facility] - [facility] 5 09:53:38 Adult attention deficit hyperactivity disorder 937344509 Active 2024 RICKY Fair Attn: Accountin g,[address] [facility], [place], [address], [facility] - [facility] 5 10:03:41 Family history of malignant neoplasm of breast in first degree relative 640626904 Active 2024 RICKY Fair Attn: Accountin g,[address] [facility], [place], [address], [facility] - [facility] 5 10:03:43 Paresthesia of upper limb 29486872 Active 2024 RICKY Fair Attn: Accountin g,[address] [facility], [place], [address], [facility] - [facility] 5 10:03:45 Problem Notes None recorded. Procedures Surgical History Date Name Laterality Status Provider Name and Address Organization Details Recorded Time excision of bilateral fallopian tubes and ovaries completed Les Holder [place] 08/22/2024 10:48:55 Imaging Results Imaging Date Name Status LastModified by Organiz ation Details LastModified Time 09/08/2024 CT, head, w/o contrast completed [email or web address] [place] [address] [address], [address], 09/09/2024 10:23:45 09/08/2024 XR, hip, bilateral completed [email or web address] [address] [facility] [address], [place], [address], 09/11/2024 14:53:02 09/11/2024 XR, cervical spine, 2 or 3 view active [email or web address] [facility] [address], [place], [address], 09/12/2024 08:55:34 Procedure Notes None recorded. Medical Equipment None Reported. Allergies No known drug allergies Medications Name Sig Start Date Stop Date Status Note LastModified by Organization Details LastModified Time dextroamphetamin e sulfate 20 mg tablet Take 1 tablet every day by oral route. active Not Available Not Available No t Available Vitals Date Recorded Body weight Respiratory rate Provider N bud and Address Organization Details Last Updated DateTime 08/22/2024 86224.93 g 18 /min Les Holder MA [facility] 08/22/2024 09:40:55 Date Recorded Body mass index (BMI) Body height Provider Name and Address Organization Details Last Updated DateTime 08/22/2024 21.9 kg/m2 170.18 cm Les Holder MA [facility] 08/22/2024 09:41:29 Date Recorded Oxygen saturation Oxygen saturation in Arterial blood by Pulse oximetry Provider Name and Address Organization Details Last Updated DateTime 08/22/2024 100 % 100 % Les Holder MA [facility] 08/22/2024 09:44:48 Date Recorded Heart rate Provider Name an d Address Organization Details Last Updated DateTime 08/22/2024 68 /min Les Holder MA [facility] 2024 09:44:49 Date Recorded Systolic blood pressure Diastolic blood pressure Provider Name and Address Organization Details Last Updated DateTime 08/22/2024 108 mm[Hg] 82 mm[Hg] Lse Holder MA [facility] 08/22/2024 09:45:53 Date Recorded Systolic blood pressure Diastolic blood pressure Provider Name and Address Organization Details Last Updated DateTime 08/22/2024 110 mm[Hg] 80 mm[Hg] RICKY Fair Attn: Accounting,[address], [place], [address], [facility] 08/22/2024 10:01:34 Social History Question Answer Notes LastModified by Organizat ion Details LastModified Time Tobacco Smoking Status Never Smoker Les Holder MA null, [facility] 08/22/2024 09:43:42 Do You Have An Advance Directive? No Information not available 08/22/2024 What Is Your Level Of Alcohol Consumption? Occasional Socially Information not available 08/22/2024 Are You Blind Or Do You Have Difficulty Seeing? No Readers Information not available 08/22/2024 What Is Your Level Of Caffeine Consumption? Moderate Information not available 08/22/2024 In The 14 Days Before Symptom Onset, Have You Had Close Contact With A Laboratory-confir med COVID-19 While That Case Was Ill? No Information not available 08/22/2024 In The 14 Days Before Symptom Onset, Have You Had Close Contact With A Person Who Is Under Investigation For COVID-19 While That Person Was Ill? No Information not available 08/22/2024 Have You Been To An Area Known To Be High Risk For COVID-19? No Information not available 08/22/2024 Are You Currently Employed? Yes Information not available 08/22/2024 Are You Deaf Or Do You Have Serious Difficulty Hearing? No Information not available 08/22/2024 What Type Of Diet Are You Following? REGULAR Information not available 08/22/2024 Are There Any Guns Present In Your Home? No Information not available 08/22/2024 What Was The Date Of Your Most Recent Tobacco Screening? 08/22/2024 Information not available 08/22/2024 Do You Use Your Seat Belt Or Car Seat Routinely? Yes Information not available 08/22/2024 Do You Have Smoke And Carbon Monoxide Detectors In Your Home? Yes Information not available 08/22/2024 Do You Feel Stressed (tense, Restless, Nervous, Or Anxious, Or Unable To Sleep At Night)? TO2181-1 Information not available 08/22/2024 Do You Use Any Illicit Or Recreational Drugs? No Information not available 08/22/2024 Do You Use Sunscreen Routinely? Yes Information not available 08/22/2024 Has Tobacco Cessation Counseling Been Provided? No Information not available 08/22/2024 Do You Or Have You Ever Used Any Other Forms Of Tobacco Or Nicotine? No Information not available 08/22/2024 Sex: Female Functional Status Question Answer Note LastModified by Organizat ion Details LastModified Time Are you able to care for yourself? Yes Information not available 08/22/2024 What is your exercise level? Occasional Information not available 08/22/2024 Mental Status None recorded. Family History Relationship Description Onset Age of this Age Resolved Age Notes LastModified by Organization Details LastModified Time Mother Family history of breast cancer tcarterma Not available 2024 10:49:08 Sister Family history of breast cancer tcarterma Not available 2024 10:49:08 Father Myocardial infarction tcarterma Not available 08/22 10:49:15 Medical History Condition Response Coronary Artery Disease N Other Y High Blood Pressure N Atrial Fibrillation N Thyroid Problems N Kidney or Bladder Problems N Depression N COPD N Blood Clots N GI Problems N Have you had a mammogram in the last yea r? N Skin Problems N Anemia N Heart Attack ([place]) N Anxiety Disorder Y Diabetes N Muscle, Joint, or Bone Problems N Seizures/Epilepsy N Have you had a colonoscopy in the last 1 0 years? N Acid Reflux (GERD) N Cancer N Stroke N Asthma N Allergies N Have you had a PSA blood test in the las t year? N High Cholesterol N Hepatitis N Liver Disease N Headaches N Osteoporosis N Heart Failure N Gynecological History Statement/Question Response Menses Monthly N Duration of Flow (days) Obstetrics History GPAL:G 1 P 1 0 0 1 Type Value Full Term 1 Induced 0 Spontaneous 0 Premature 0 Living 1 Total 1 Past Encounters Encounter ID Performer Location Encounter Start Date Encounter Closed Date Diagnosis/Indication Diagnosis SNOMED-CT Code Diagnosis ICD10 Code Diagnosis Note [id number] RICKY Fair [facility] [place] [address] [place] [address] 08/22/2024 09:33:11 08/22/2024 13:38:06 Adult health examination 241418609 Z00.00 Annual wellness exam completed Cholesterol screening 27 0270340 Z13.220 Fasting lipids due for annual cholestero l evaluation Diabetes m ellitus screening 826643789 Z13.1 Routine diabetes screening ordered Body mass index 20-24 - normal 870913186 Z68.21 BMI is 21.9 Long-term drug therapy 567998853 Z79.891 CBC and CMP ordered Family his tory of cancer of colon 981489698 Z80.0 Maternal GM had colon cancer. Thyroid di sorder screening 346834695 Z13.29 Routine thyroid function testing ordered Paresthesi a of upper limb 37400462 R20.2 right thumb is numb completely . Check baseline x-ray of the C-spine and screening vitamin B12 ordered Family his tory of malignant neoplasm of breast in first degree relative 166156470 Z80.3 Mother and Sister had breast cancer. Adult atte ntion deficit hyperactivity disorder 662368144 F90.[address] office/ margarito Harris NP manages. Health Concerns Section Related Observation LastModified by Organization Detai ls LastModified Time None Recorded Concern Status LastModified by Organization Details LastModified Time None Recorded Advance Directives Directive N: Payers Encounter Date Sequence Insurance Name Policy Number Policy [place] Covered Member ID [place] Member ID Guarantor Name 08/22/2024 1 [facility] [id number] Elvia Jnoesraúl [id number] Elvia Feldman Notes Date Note Type Note Provider Name and Address Organization Details Recorded Time 08/22/2024 text/html Patient is here to reestablish with provider. She has a family history of colon cancer. She reports a family history of breast cancer in her mother. She also reports a history of adult attention deficit hyperactivity disorder. She is currently taking Adderall 20 mg daily. She does report she has got some paresthesia of her upper limbs which she attributes to possible history of some neck issues. She does have a lot of physical exercise and does Women's roller [place]. She does have a lot of injury in her athletic past. Patient is also due for routine updated labs RICKY Fair Attn: Accounting,[address] [place], [address], [place] [facility] 09/09/2024 17:14:45 OBGyn Episode No OBEpisode recorded.
--- OUTSIDE RECORDS SUMMARY | 2024-09-13 03:19 | XMS_ITS | Continuity of Care Document ---
Author Organization [facility] Address [address] [facility] [place] [address] Phone Care Team Providers Care Clerical Order Filler Name Role Phone Eder Pantoja MD Unavailable Unavailable Allergies, Adverse Reactions, Alerts Substance Reaction Status Criticality No Known Allergies Active No Inform ation Procedures Procedure Date PREV VISIT, NEW, AGE 18-39 Advance Directives Directive Yes / No Effective Date File Name No Information Encounters Encounter Description Practice Location Reason(s) For Visit Diagnoses Date Provider Providers Copied on Encounter [facility], [address] [place] [address] [place], [id number], tel:[phone] [facility] No Information Kit [place]. [facility] [place], [id number], [place]. tel:[phone] Referring Provider: Eder Pantoja, [address] [place] [address], [id number]. tel:[phone] PREV VISIT, NEW, AGE 18-39 [facility], [address] [place] [address] [facility] [place], [id number], tel:[phone] [facility] Physical (chief complaint) Routine Medical ExamRoutine Medical Exam Kit [place]. [facility] [place], [id number], [place]. tel:[phone] Referring Provider: Eder Pantoja, [address] [place], [place], [id number]. tel:[phone] Family History Family Member Type Diagnosis Age At Onset Brother Problem (finding) Alive and well Father Problem (finding) Alive and well Mother Problem (finding) Alive and well Payers Payer name Insurance type Covered green party ID Authoriza tion(s) No Information Social History [...]
--- OUTSIDE RECORDS SUMMARY | 2024-09-13 03:20 | XMS_ITS ---
Author Organization [facility] [employer] [facility] Address [address] [place] [address] Care Team Providers Care Art Objects Salesperson Name Role Phone Perla Whipple Primary Care Provider Nita Head Unavailable [phone] REASON FOR VISIT Adderall Refill Medications Medication SIG (Take, Route, Fr equency, Duration) Notes Start Date End Date Status Adderall XR 20 MG 1 capsule in the mor frederick Orally Once a day for 30 days 07/24/2024 Active Social History Sex Assigned At : Social History Observation Description Sex Assigned At Female Encounters Encounter Location Date Provider Diagnosis [facility] [address] [facility] [address] [facility] [address] [place] [address] 07/22/2024 Nita Harris Attention-deficit hyperactivity disorder, combined type F90.2 Assessments Encounter Date Diagnosis (ICD Code) Assessment Notes Treatment Notes Treatment Clinical Notes Section Notes 07/22/2024 Attention-deficit hyperactivity disorder, combined type (ICD-10 - F90.2) Plan Of Treatment Medication Medication Name Sig Start Date Stop Date Notes Adderall XR 20 MG 1 capsule in the mor frederick Orally Once a day for 30 days 07/24/2024 Progress Notes * FAISAL CHATMANOB: 7 (48 yo F)Acc No.[id number]:07/22/2024 Patient:?ANTHONYVICKY ANDERSONY :1975???Age:48 Y???Sex:Female Address:[address] [place] [address] * Refills? Refill Adderall XR Capsule Extended Release 24 Hour, 20 MG, Orally, 30 Capsule, 1 capsule in the morning, Once a day, 30 days, Refills=0 Subjective: * Chief Complaints: * ???Adderall Refill * Medical History:? * Surgical History:? * Hospitalization/Major Diagno stic Procedure:? * Medications:? Objective: * Vitals:? * Physical Examination:? Assessment: * Assessment: 1.?Attention-deficit hyperac tivity disorder, combined type - F90.2??? Plan: * Treatment: * Procedure Codes:?ERX CONTROL LED SUBSTANCE ERX * * Date:?
--- OUTSIDE RECORDS SUMMARY | 2024-09-13 03:20 | XMS_ITS ---
Author Organization [facility] Address [facility] [place] [address] Care Team Providers Care Sewer Bricklayer Name Role Phone Perla Whipple Primary Care Provider Nita Head Unavailable [phone] REASON FOR VISIT New Refill Request Medications Medication SIG (Take, Route, Fr equency, Duration) Notes Start Date End Date Status Adderall XR 20 MG 1 capsule in the mor frederick Orally Once a day for 30 days 08/15/2024 Active Social History Sex Assigned At : Social History Observation Description Sex Assigned At Female Encounters Encounter Location Date Provider Diagnosis [facility] [place] [id number] [facility] [address] [place] [address] 08/15/2024 Nita Harris Attention-deficit hyperactivity disorder, combined type F90.2 Assessments Encounter Date Diagnosis (ICD Code) Assessment Notes Treatment Notes Treatment Clinical Notes Section Notes 08/15/2024 Attention-deficit hyperactivity disorder, combined type (ICD-10 - F90.2) Plan Of Treatment Medication Medication Name Sig Start Date Stop Date Notes Adderall XR 20 MG 1 capsule in the mor frederick Orally Once a day for 30 days 08/15/2024 Progress Notes * FAISAL CHATMANOB: 7 (48 yo F)Acc No.[id number]:08/15/2024 Patient:?IVAN CHATMAN :1975???Age:48 Y???Sex:Female Address:[address] [place] [address] * Refills? Refill Adderall XR Capsule Extended Release 24 Hour, 20 MG, Orally, 30 Capsule, 1 capsule in the morning, Once a day, 30 days, Refills=0 Subjective: * Chief Complaints: * ???New Refill Request * Medical History:? * Surgical History:? * Hospitalization/Major Diagno stic Procedure:? * Medications:? Objective: * Vitals:? * Physical Examination:? Assessment: * Assessment: 1.?Attention-deficit hyperac tivity disorder, combined type - F90.2??? Plan: * Treatment: * Procedure Codes:?ERX CONTROL LED SUBSTANCE ERX * * Date:?
--- OUTSIDE RECORDS SUMMARY | 2024-09-13 03:20 | XMS_ITS | Patient Health Record ---
Author Organization [facility] [employer] Address [address] [facility] [address] [place] [address] Care Team Providers Care Marketing Developer Name Role Phone Pelra Whipple Primary Care Provider Nita Head Unavailable [phone] JayeshLaw gomez Unavailable [phone] Migration, Provider Unavailable Unavailable Allergies No Known Allergies Results Component Value Reference Range Notes DRUG SCREEN, 14 DRUGS (DETEC TIMED), URINE Reviewed date:11/07/2023 12:00:00 AM Interpretation: Performing Lab: Notes/Report: Amphetamine negative Barbiturates negative Benzodiazipine negative Buprenorphine negative Cocaine negative MDMA/Ectasy negative Methadone negative Methamphetamine negative Morphine positive Oxycodone negative Phenocyclidine negative THC negative CONTROLLED SUBSTANCE AGREEME NT* Reviewed date:11/14/2023 12:00:00 AM Interpretation: Performing Lab: Notes/Report: DRUG MONITOR, METHAMPHETAMIN E D/L,U ([id number]) Reviewed date:03/07/2024 05:33:48 PM Interpretation: Performing Lab:CB, [facility] [address] [facility], [facility] Center[facility]anmSB[address] Pepe Marie, Director - [address] [facility] Notes/Report: FASTING: NO d Methamphetamine 0 l Methamphetamine 0 D/L Methamphet Comments See LDT Notes Notes and Comments This drug testing is for medical treatment only. Analysis was performed as non-forensic testing and these results should be used only by healthcare providers to render diagnosis or treatment, or to monitor progress of medical conditions. Ritalinic Acid Notes: Ritalinic Acid detected is consistent with the use of the drug Methylphenidate. LDT Notes: Confirmation tests were developed and their analytical performance characteristics have been determined by [employer]. It has not been cleared or approved by the FDA. This assay has been validated pursuant to the CLIA regulations and is used for clinical purposes. Healthcare Providers needing Interpretation assistance, please contact us at [phone] ( ) M-F, 8am to 10pm EST Patient Historical Report Your request to have a duplicate copy faxed has been acknowledged. Queued to: [id number] DRUG MONITOR,METHYLPHENID ME TAB, QN, URINE ([id number]) Reviewed date:03/07/2024 05:33:30 PM Interpretation: Performing Lab:JONE, [facility] [address], Sukhdeep SaldivarCbqqUN[address] Pepe Marie Notes/Report: FASTING: NO Ritalinic Acid 3690 <100 ng/mL Ritalinic Acid Comments See Ritalinic Acid Notes, LDT Notes UDT Reviewed date:07/08/2024 04:54:17 PM Interpretation: Performing Lab: Notes/Report: THC n 0 - 50 ng/ml Cocaine n 0 - 300 ng/ml Amphetamine p 0 - 1000 ng/ml Buprenorphine (BUP) n 0 - 10 ng/ml Secobarbital (Bar) n 0 - 300 ng/ml Oxazepam (BZO) n 0 - 300 ng/ml 0-znahkugmlb-1,1-jcewhxas-7, 3-dipheny lpyrrolidine (EDDP) n 0 - 300 ng/ml Methamphetamine (MET) n 0 - 1000 ng/ml Methylenedioxymethamphetamine (MDMA) n 0 - 500 ng/ml Morphine (MOP 300/OYT2412) n 0 - 300 ng/ml Methadone (MTD) n 0 - 300 ng/ml Phencyclidine (PCP) n 0 - 25 ng/ml Propoxyphene (PPX) n 0 - 300 ng/ml Nortriptyline (TCA) n 0 - 1000 ng/ml Oxycodone n 0 - 300 ng/ml Reason For Referral No Information Medications Medication SIG (Take, Route, Frequency, Duration) Notes Start Date End Date Status busPIRone HCl 15 MG Oral 11/23/2023 Not-Taking Flowflex COVID-19 Ag Home Test In Vitro *Reorder from [employer] for eRx and Interaction Alerts* 11/23/2023 Not-Taking Adderall XR 20 MG 1 capsule in the morning Orally Once a day for 30 days 08/15/2024 Active Social History Tobacco Use: Social History Observation Description Date Details (start date - stop date) Current some da y smoker NA - NA Sex Assigned At : Social History Observation Description Sex Assigned At Female Tobacco Control (Standard) Question Answer Notes Tobacco use: Current some day smoker AUDIT-C (Standard) Question Answer Notes Did you have a drink contain ing alcohol in the past year? Yes How often did you have six o r more drinks on one occasion in the past year? Less than monthly (1 point) Problems Problem Type SNOMED Code ICD Code Onset Dates Problem Status W/U Status Risk Notes Problem Mild recurrent major depression (84629315) Major depressive disorder, recurrent, mild (F33.0) 11/23/19 Active confirmed Problem Generalized anxiety disorder (87252477) Generalized anxiety disorder (F41.1) 11/23/19 Active confirmed Problem Attention deficit hyperactivity disorder, combined type (73936020) Attention-deficit hyperactivity disorder, combined type (F90.2) 01/01/20 Active confirmed Vital Signs Heart Rate 84 /min 07/08/2024 Height-cm 170.18 cm 07/08/2024 Blood pressure diastolic 85 mm Hg 07/08/2024 Weight-kg 62.14 kg 07/08/2024 Height 67.00 in 07/08/2024 Blood pressure systolic 138 mm Hg 07/08/2024 Weight 137 lbs 07/08/2024 BMI 21.45 kg/m2 07/08/2024 Encounters Encounter Location Date Provider Diagnosis [employer] [address] [facility] [address] [facility] [address] [place] [address] 11/07/2023 Nita Harris Attention-deficit hyperactivity disorder, combined type F90.2 ; Other problems related to lifestyle Z72.89 ; Generalized anxiety disorder F41.1 ; 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 and Major depressive disorder, recurrent, mild F33.0 [employer] [address] [facility] [address] [place] [address] 11/15/2023 Law Mcconnell Attention-deficit hyperactivity disorder, unspecified type F90.9 [employer] [address] [place] [address] 11/23/2023 Nita Thery Attention-deficit hyperactivity disorder, combined type F90.2 ; Major depressive disorder, recurrent, mild F33.0 ; Generalized anxiety disorder F41.1 and Other fdc (current) drug therapy Z79.899 [facility], [facility] [address] [place] [address] 12/01/2023 Provider Migration Attention-deficit hyperactivity disorder, combined type F90.2 [facility], [facility] [address] [place] [address] 01/01/2024 Provider Migration Attention-deficit hyperactivity disorder, combined type F90.2 [facility], [facility] [address] [place] [address] 01/23/2024 Nita Harris [facility], [facility] [address] [place] [address] 02/29/2024 Nita Thercelia Attention-deficit hyperactivity disorder, combined type F90.2 ; Major depressive disorder, recurrent, mild F33.0 and Generalized anxiety disorder F41.1 [facility], [facility] [address] [place] [address] 07/08/2024 Nita Thercelia Attention-deficit hyperactivity disorder, combined type F90.2 ; Major depressive disorder, recurrent, mild F33.0 and Generalized anxiety disorder F41.1 [facility], [facility] [address] [place] [address] 10/25/2023 Provider Migration [facility], [facility] [address] [place] [address] 10/27/2023 Provider Migration [facility], [facility] [address] [place] [address] 12/01/2023 Provider Migration [facility], [facility] [address] [place] [address] 01/01/2024 Provider Migration [facility], [facility] [address] [place] [address] 01/02/2024 Provider Migration [facility], [facility] [address] [place] [address] 01/06/2024 Provider Migration [facility], [facility] [address] [place] [address] 01/07/2024 Provider Migration [facility], [facility] [address] [place] [address] 01/23/2024 Nita Thery [facility], [facility] [address] [place] [address] 05/24/2024 Nita Thery Attention-deficit hyperactivity disorder, combined type F90.2 [facility], [facility] [address] [place] [address] 07/22/2024 Nita Thery Attention-deficit hyperactivity disorder, combined type F90.2 [facility], [facility] [address] [place] [address] 08/15/2024 Nita Thery Attention-deficit hyperactivity disorder, combined type F90.2 [facility] [address] [place] [address] 04/29/2024 Nita Thery Attention-deficit hyperactivity disorder, combined type F90.2 [facility], [facility] [address] [facility] [address] [place] [address] 05/23/2024 Nita Thery [facility] [address] [place] [address] 05/23/2024 Nita Thery Attention-deficit hyperactivity disorder, combined type F90.2 [facility], [facility] [address] [place] [address] 06/20/2024 Nita Thery Attention-deficit hyperactivity disorder, combined type F90.2 [facility], [facility] [address] [facility] [address] [place] [address] 07/22/2024 Nita Thery [place] [address] [place] [address] 08/15/2024 Nita Thery Assessments Encounter Date Diagnosis (ICD Code) Assessment Notes Treatment Notes Treatment Clinical Notes Section Notes 05/23/2024 Attention-defic it hyperactivity disorder, combined type (ICD-10 - F90.2) 05/24/2024 Attention-defic it hyperactivity disorder, combined type (ICD-10 - F90.2) 06/20/2024 Attention-defic it hyperactivity disorder, combined type (ICD-10 - F90.2) 02/29/2024 Attention-defic it hyperactivity disorder, combined type (ICD-10 - F90.2) Attention Deficit Hyperactivity Disorder (ADHD) in Adults: Care Instructions material was published, Learning About Attention Deficit Hyperactivity Disorder (ADHD) in Adults material was published, Learning About Stimulant Medicines for Attention Deficit Hyperactivity Disorder (ADHD) material was published 1. Mild recurrent major depression - F33.0: Major depressive disorder, recurrent, mild stable no rx presently 2. Generalized anxiety disorder - stable no rx presently discuss and educated on Buspar Patient stopped Buspar 15 mg three times a day few months ago reported did not feel like needed rx hx discuss Vistaril 10 mg for PRN anxiety - will consider educated on all medications, benefits, side effects and risk, and educated on depression, anxiety, and ADHD, mood d/o and educated on compliance of medications, metabolic and movement d/o education appointment is, continue therapy discussion with patient about course of treatment and patient instructions. education on serotonin syndrome SSRI/SNRI side effects discussed including but not limited to, gastric upset, nausea, vomiting, diarrhea and/or constipation, weight changes, sexual side effects including loss of libido, increased suicidal thoughts/behaviors in children and young adults, and serotonin syndrome. F41.1: Generalized anxiety disorder 3. Attention deficit hyperactivity disorder, combined type - Add Adderral ER 20 MG in am d/c methylphenidate 10 mg BID - [facility] pateint would like to change rx to a once day ALMA DELIA AE-2 test reviewed ALMA DELIA-AE2 DIAGNOSTIC CONSIDERATIONSThese test findings suggest that the examiner consider the diagnosis of Attention-Deficit/Hyp eractivity Disorder, combined presentation, and this individual's pattern of responding was indicative of impairments likely to impact her functioning in the home and work settings. The Self Rating Scales identified a significant number of hyperactive/impulsive and inattentive symptoms. These rating scales fully support the diagnosis suggested by the test results. Given that the ALMA DELIA-AE2 test and rating scale data are congruent, the examiner can utilize this information in making a diagnosis.In addition, it is necessary to determine the occurrence of several inattentive or hyperactive/impulsive symptoms before the age of twelve in order to clinically diagnose ADHD for adolescents or adults. Since the examiner did not identify whether this individual had ADHD symptoms when she was a child, it is essential that the examiner clarify this individual's clinical history in order to make a definitive diagnosis. Her global Visual Response Control quotient scale score indicated a moderate impairment. In addition, her global Visual Attention quotient scale score fell in the moderately impaired range. She was also unable to validly respond to auditory stimuli and may have been impaired in her capability to shift sets between the visual and auditory modalities. These ALMA DELIA-AE2 test findings will need to be included in the examiner's diagnostic decision making process. ADHD stimulates education Discuss with patient risk of misuse, abuse, and addiction before prescribing stimulant medicines. 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 Educate patients and their families on these serious risks, proper storage of the medicine, and proper disposal of any unused medicine. Educated patient will monitor Throughout treatment, regularly assess and monitor them for signs and symptoms of nonmedical use, addiction, and potential diversion, which may be evidenced by more frequent renewal. requests than warranted by the prescribed dosage. Random UDS [place] prescription reviewed local pharmacy in [facility], no early refills on control substance educated on non-stimulate and stimulates limit caffeinetake stimulate after workout in am F90.2: Attention-deficit hyperactivity disorder, combined type 4. 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 Mild recurrent major depression - stable no rx presently 2. Generalized anxiety disorder - stable no rx presently discuss and educated on Buspar Patient stopped Buspar 15 mg three times a day few months ago reported did not feel like needed rx hx discuss Vistaril 10 mg for PRN anxiety - will consider educated on all medications, benefits, side effects and risk, and educated on depression, anxiety, and ADHD, mood d/o and educated on compliance of medications, metabolic and movement d/o education appointment is, continue therapy discussion with patient about course of treatment and patient instructions. education on serotonin syndrome SSRI/SNRI side effects discussed including but not limited to, gastric upset, nausea, vomiting, diarrhea and/or constipation, weight changes, sexual side effects including loss of libido, increased suicidal thoughts/behaviors in children and young adults, and serotonin syndrome. 3. Attention deficit hyperactivity disorder, combined type - Adderral ER 20 MG in am no refill needed today [facility] des[facility]ande would like to change rx to a once day ALMA DELIA AE-2 test reviewed ALMA DELIA-AE2 DIAGNOSTIC CONSIDERATIONSThese test findings suggest that the examiner consider the diagnosis of Attention-Deficit/Hyp eractivity Disorder, combined presentation, and this individual's pattern of responding was indicative of impairments likely to impact her functioning in the home and work settings. The Self Rating Scales identified a significant number of hyperactive/impulsive and inattentive symptoms. These rating scales fully support the diagnosis suggested by the test results. Given that the ALMA DELIA-AE2 test and rating scale data are congruent, the examiner can utilize this information in making a diagnosis.In addition, it is necessary to determine the occurrence of several inattentive or hyperactive/impulsive symptoms before the age of twelve in order to clinically diagnose ADHD for adolescents or adults. Since the examiner did not identify whether this individual had ADHD symptoms when she was a child, it is essential that the examiner clarify this individual's clinical history in order to make a definitive diagnosis. Her global Visual Response Control quotient scale score indicated a moderate impairment. In addition, her global Visual Attention quotient scale score fell in the moderately impaired range. She was also unable to validly respond to auditory stimuli and may have been impaired in her capability to shift sets between the visual and auditory modalities. These ALMA DELIA-AE2 test findings will need to be included in the examiner's diagnostic decision making process. ADHD stimulates education Discuss with patient risk of misuse, abuse, and addiction before prescribing stimulant medicines. 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 Educate patients and their families on these serious risks, proper storage of the medicine, and proper disposal of any unused medicine. Educated patient will monitor Throughout treatment, regularly assess and monitor them for signs and symptoms of nonmedical use, addiction, and potential diversion, which may be evidenced by more frequent renewal. requests than warranted by the prescribed dosage. Random UDS [place] prescription reviewed local pharmacy in [place], no early refills on control substance educated on non-stimulate and stimulates limit caffeinetake stimulate after workout in am 4. 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 (ICD-10 - Z79.899) 11/15/2023 Attention-defic it hyperactivity disorder, unspecified type (ICD-10 - F90.9) 11/23/2023 Major depressive disorder, recurrent, mild (ICD-10 - F33.0) 11/23/2023 Generalized anxiety disorder (ICD-10 - F41.1) 11/23/2023 Attention-defic it hyperactivity disorder, combined type (ICD-10 - F90.2) 11/23/2023 Other fdc (current) drug therapy (ICD-10 - Z79.899) 12/01/2023 Attention-defic it hyperactivity disorder, combined type (ICD-10 - F90.2) 01/01/2024 Attention-defic it hyperactivity disorder, combined type (ICD-10 - F90.2) 02/29/2024 Major depressive disorder, recurrent, mild (ICD-10 - F33.0) Preventing Depression From Coming Back: Care Instructions material was published 1. Mild recurrent major depression - F33.0: Major depressive disorder, recurrent, mild stable no rx presently 2. Generalized anxiety disorder - stable no rx presently discuss and educated on Buspar Patient stopped Buspar 15 mg three times a day few months ago reported did not feel like needed rx hx discuss Vistaril 10 mg for PRN anxiety - will consider educated on all medications, benefits, side effects and risk, and educated on depression, anxiety, and ADHD, mood d/o and educated on compliance of medications, metabolic and movement d/o education appointment is, continue therapy discussion with patient about course of treatment and patient instructions. education on serotonin syndrome SSRI/SNRI side effects discussed including but not limited to, gastric upset, nausea, vomiting, diarrhea and/or constipation, weight changes, sexual side effects including loss of libido, increased suicidal thoughts/behaviors in children and young adults, and serotonin syndrome. F41.1: Generalized anxiety disorder 3. Attention deficit hyperactivity disorder, combined type - Add Adderral ER 20 MG in am d/c methylphenidate 10 mg BID - [facility] pateint would like to change rx to a once day ALMA DELIA AE-2 test reviewed ALMA DELIA-AE2 DIAGNOSTIC CONSIDERATIONSThese test findings suggest that the examiner consider the diagnosis of Attention-Deficit/Hyp eractivity Disorder, combined presentation, and this individual's pattern of responding was indicative of impairments likely to impact her functioning in the home and work settings. The Self Rating Scales identified a significant number of hyperactive/impulsive and inattentive symptoms. These rating scales fully support the diagnosis suggested by the test results. Given that the AMLA DELIA-AE2 test and rating scale data are congruent, the examiner can utilize this information in making a diagnosis.In addition, it is necessary to determine the occurrence of several inattentive or hyperactive/impulsive symptoms before the age of twelve in order to clinically diagnose ADHD for adolescents or adults. Since the examiner did not identify whether this individual had ADHD symptoms when she was a child, it is essential that the examiner clarify this individual's clinical history in order to make a definitive diagnosis. Her global Visual Response Control quotient scale score indicated a moderate impairment. In addition, her global Visual Attention quotient scale score fell in the moderately impaired range. She was also unable to validly respond to auditory stimuli and may have been impaired in her capability to shift sets between the visual and auditory modalities. These ALMA DELIA-AE2 test findings will need to be included in the examiner's diagnostic decision making process. ADHD stimulates education Discuss with patient risk of misuse, abuse, and addiction before prescribing stimulant medicines. 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 Educate patients and their families on these serious risks, proper storage of the medicine, and proper disposal of any unused medicine. Educated patient will monitor Throughout treatment, regularly assess and monitor them for signs and symptoms of nonmedical use, addiction, and potential diversion, which may be evidenced by more frequent renewal. requests than warranted by the prescribed dosage. Random UDS [place] prescription reviewed local pharmacy in [facility], no early refills on control substance educated on non-stimulate and stimulates limit caffeinetake stimulate after workout in am F90.2: Attention-deficit hyperactivity disorder, combined type 4. Long-term drug therapy Z79.899: Other fdc (current) drug therapy 02/29/2024 Generalized anxiety disorder (ICD-10 - F41.1) Learning About Generalized Anxiety Disorder material was published 1. Mild recurrent major depression - F33.0: Major depressive disorder, recurrent, mild stable no rx presently 2. Generalized anxiety disorder - stable no rx presently discuss and educated on Buspar Patient stopped Buspar 15 mg three times a day few months ago reported did not feel like needed rx hx discuss Vistaril 10 mg for PRN anxiety - will consider educated on all medications, benefits, side effects and risk, and educated on depression, anxiety, and ADHD, mood d/o and educated on compliance of medications, metabolic and movement d/o education appointment is, continue therapy discussion with patient about course of treatment and patient instructions. education on serotonin syndrome SSRI/SNRI side effects discussed including but not limited to, gastric upset, nausea, vomiting, diarrhea and/or constipation, weight changes, sexual side effects including loss of libido, increased suicidal thoughts/behaviors in children and young adults, and serotonin syndrome. F41.1: Generalized anxiety disorder 3. Attention deficit hyperactivity disorder, combined type - Add Adderral ER 20 MG in am d/c methylphenidate 10 mg BID - [facility] pateint would like to change rx to a once day ALMA [facility]IA AE-2 test reviewed ALMA DELIA-AE2 DIAGNOSTIC CONSIDERATIONSThese test findings suggest that the examiner consider the diagnosis of Attention-Deficit/Hyp eractivity Disorder, combined presentation, and this individual's pattern of responding was indicative of impairments likely to impact her functioning in the home and work settings. The Self Rating Scales identified a significant number of hyperactive/impulsive and inattentive symptoms. These rating scales fully support the diagnosis suggested by the test results. Given that the ALMA DELIA-AE2 test and rating scale data are congruent, the examiner can utilize this information in making a diagnosis.In addition, it is necessary to determine the occurrence of several inattentive or hyperactive/impulsive symptoms before the age of twelve in order to clinically diagnose ADHD for adolescents or adults. Since the examiner did not identify whether this individual had ADHD symptoms when she was a child, it is essential that the examiner clarify this individual's clinical history in order to make a definitive diagnosis. Her global Visual Response Control quotient scale score indicated a moderate impairment. In addition, her global Visual Attention quotient scale score fell in the moderately impaired range. She was also unable to validly respond to auditory stimuli and may have been impaired in her capability to shift sets between the visual and auditory modalities. These ALMA DELIA-AE2 test findings will need to be included in the examiner's diagnostic decision making process. ADHD stimulates education Discuss with patient risk of misuse, abuse, and addiction before prescribing stimulant medicines. 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 Educate patients and their families on these serious risks, proper storage of the medicine, and proper disposal of any unused medicine. Educated patient will monitor Throughout treatment, regularly assess and monitor them for signs and symptoms of nonmedical use, addiction, and potential diversion, which may be evidenced by more frequent renewal. requests than warranted by the prescribed dosage. Random UDS [place] prescription reviewed local pharmacy in [facility], no early refills on control substance educated on non-stimulate and stimulates limit caffeinetake stimulate after workout in am F90.2: Attention-deficit hyperactivity disorder, combined type 4. Long-term drug therapy Z79.899: Other fdc (current) drug therapy 07/08/2024 Major depressive disorder, recurrent, mild (ICD-10 - F33.0) Preventing Depression From Coming Back: Care Instructions material was published 1. Mild recurrent major depression - stable no rx presently 2. Generalized anxiety disorder - stable no rx presently discuss and educated on Buspar Patient stopped Buspar 15 mg three times a day few months ago reported did not feel like needed rx hx discuss Vistaril 10 mg for PRN anxiety - will consider educated on all medications, benefits, side effects and risk, and educated on depression, anxiety, and ADHD, mood d/o and educated on compliance of medications, metabolic and movement d/o education appointment is, continue therapy discussion with patient about course of treatment and patient instructions. education on serotonin syndrome SSRI/SNRI side effects discussed including but not limited to, gastric upset, nausea, vomiting, diarrhea and/or constipation, weight changes, sexual side effects including loss of libido, increased suicidal thoughts/behaviors in children and young adults, and serotonin syndrome. 3. Attention deficit hyperactivity disorder, combined type - Adderral ER 20 MG in am no refill needed today [facility] pateint would like to change rx to a once day ALMA [place]IA AE-2 test reviewed ALMA [facility]IA-AE2 DIAGNOSTIC CONSIDERATIONSThese test findings suggest that the examiner consider the diagnosis of Attention-Deficit/Hyp eractivity Disorder, combined presentation, and this individual's pattern of responding was indicative of impairments likely to impact her functioning in the home and work settings. The Self Rating Scales identified a significant number of hyperactive/impulsive and inattentive symptoms. These rating scales fully support the diagnosis suggested by the test results. Given that the ALMA DELIA-AE2 test and rating scale data are congruent, the examiner can utilize this information in making a diagnosis.In addition, it is necessary to determine the occurrence of several inattentive or hyperactive/impulsive symptoms before the age of twelve in order to clinically diagnose ADHD for adolescents or adults. Since the examiner did not identify whether this individual had ADHD symptoms when she was a child, it is essential that the examiner clarify this individual's clinical history in order to make a definitive diagnosis. Her global Visual Response Control quotient scale score indicated a moderate impairment. In addition, her global Visual Attention quotient scale score fell in the moderately impaired range. She was also unable to validly respond to auditory stimuli and may have been impaired in her capability to shift sets between the visual and auditory modalities. These ALMA DELIA-AE2 test findings will need to be included in the examiner's diagnostic decision making process. ADHD stimulates education Discuss with patient risk of misuse, abuse, and addiction before prescribing stimulant medicines. 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 Educate patients and their families on these serious risks, proper storage of the medicine, and proper disposal of any unused medicine. Educated patient will monitor Throughout treatment, regularly assess and monitor them for signs and symptoms of nonmedical use, addiction, and potential diversion, which may be evidenced by more frequent renewal. requests than warranted by the prescribed dosage. Random UDS [place] prescription reviewed local pharmacy in [facility], no early refills on control substance educated on non-stimulate and stimulates limit caffeinetake stimulate after workout in am 4. Long-term drug therapy 07/08/2024 Generalized anxiety disorder (ICD-10 - F41.1) Learning About Generalized Anxiety Disorder material was published 1. Mild recurrent major depression - stable no rx presently 2. Generalized anxiety disorder - stable no rx presently discuss and educated on Buspar Patient stopped Buspar 15 mg three times a day few months ago reported did not feel like needed rx hx discuss Vistaril 10 mg for PRN anxiety - will consider educated on all medications, benefits, side effects and risk, and educated on depression, anxiety, and ADHD, mood d/o and educated on compliance of medications, metabolic and movement d/o education appointment is, continue therapy discussion with patient about course of treatment and patient instructions. education on serotonin syndrome SSRI/SNRI side effects discussed including but not limited to, gastric upset, nausea, vomiting, diarrhea and/or constipation, weight changes, sexual side effects including loss of libido, increased suicidal thoughts/behaviors in children and young adults, and serotonin syndrome. 3. Attention deficit hyperactivity disorder, combined type - Adderral ER 20 MG in am no refill needed today [facility] pateint would like to change rx to a once day ALMA [facility]IA AE-2 test reviewed ALMA DELIA-AE2 DIAGNOSTIC CONSIDERATIONSThese test findings suggest that the examiner consider the diagnosis of Attention-Deficit/Hyp eractivity Disorder, combined presentation, and this individual's pattern of responding was indicative of impairments likely to impact her functioning in the home and work settings. The Self Rating Scales identified a significant number of hyperactive/impulsive and inattentive symptoms. These rating scales fully support the diagnosis suggested by the test results. Given that the ALMA DELIA-AE2 test and rating scale data are congruent, the examiner can utilize this information in making a diagnosis.In addition, it is necessary to determine the occurrence of several inattentive or hyperactive/impulsive symptoms before the age of twelve in order to clinically diagnose ADHD for adolescents or adults. Since the examiner did not identify whether this individual had ADHD symptoms when she was a child, it is essential that the examiner clarify this individual's clinical history in order to make a definitive diagnosis. Her global Visual Response Control quotient scale score indicated a moderate impairment. In addition, her global Visual Attention quotient scale score fell in the moderately impaired range. She was also unable to validly respond to auditory stimuli and may have been impaired in her capability to shift sets between the visual and auditory modalities. These ALMA DELIA-AE2 test findings will need to be included in the examiner's diagnostic decision making process. ADHD stimulates education Discuss with patient risk of misuse, abuse, and addiction before prescribing stimulant medicines. 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 Educate patients and their families on these serious risks, proper storage of the medicine, and proper disposal of any unused medicine. Educated patient will monitor Throughout treatment, regularly assess and monitor them for signs and symptoms of nonmedical use, addiction, and potential diversion, which may be evidenced by more frequent renewal. requests than warranted by the prescribed dosage. Random UDS [place] prescription reviewed local pharmacy in [place], no early refills on control substance educated on non-stimulate and stimulates limit caffeinetake stimulate after workout in am 4. Long-term drug therapy 02/29/2024 Other Dextroamphetami ne/Amphetamine Extended Release Oral Capsule (DEXTROAMPHETAM INE/AMPHETAMINE EXTENDED-RELEAS E - ORAL) material was published 1. Mild recurrent major depression - F33.0: Major depressive disorder, recurrent, mild stable no rx presently 2. Generalized anxiety disorder - stable no rx presently discuss and educated on Buspar Patient stopped Buspar 15 mg three times a day few months ago reported did not feel like needed rx hx discuss Vistaril 10 mg for PRN anxiety - will consider educated on all medications, benefits, side effects and risk, and educated on depression, anxiety, and ADHD, mood d/o and educated on compliance of medications, metabolic and movement d/o education appointment is, continue therapy discussion with patient about course of treatment and patient instructions. education on serotonin syndrome SSRI/SNRI side effects discussed including but not limited to, gastric upset, nausea, vomiting, diarrhea and/or constipation, weight changes, sexual side effects including loss of libido, increased suicidal thoughts/behaviors in children and young adults, and serotonin syndrome. F41.1: Generalized anxiety disorder 3. Attention deficit hyperactivity disorder, combined type - Add Adderral ER 20 MG in am d/c methylphenidate 10 mg BID - [facility] pateint would like to change rx to a once day ALMA [facility] AE-2 test reviewed ALMA [facility]IA-AE2 DIAGNOSTIC CONSIDERATIONSThese test findings suggest that the examiner consider the diagnosis of Attention-Deficit/Hyp eractivity Disorder, combined presentation, and this individual's pattern of responding was indicative of impairments likely to impact her functioning in the home and work settings. The Self Rating Scales identified a significant number of hyperactive/impulsive and inattentive symptoms. These rating scales fully support the diagnosis suggested by the test results. Given that the ALMA DELIA-AE2 test and rating scale data are congruent, the examiner can utilize this information in making a diagnosis.In addition, it is necessary to determine the occurrence of several inattentive or hyperactive/impulsive symptoms before the age of twelve in order to clinically diagnose ADHD for adolescents or adults. Since the examiner did not identify whether this individual had ADHD symptoms when she was a child, it is essential that the examiner clarify this individual's clinical history in order to make a definitive diagnosis. Her global Visual Response Control quotient scale score indicated a moderate impairment. In addition, her global Visual Attention quotient scale score fell in the moderately impaired range. She was also unable to validly respond to auditory stimuli and may have been impaired in her capability to shift sets between the visual and auditory modalities. These ALMA DELIA-AE2 test findings will need to be included in the examiner's diagnostic decision making process. ADHD stimulates education Discuss with patient risk of misuse, abuse, and addiction before prescribing stimulant medicines. 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 Educate patients and their families on these serious risks, proper storage of the medicine, and proper disposal of any unused medicine. Educated patient will monitor Throughout treatment, regularly assess and monitor them for signs and symptoms of nonmedical use, addiction, and potential diversion, which may be evidenced by more frequent renewal. requests than warranted by the prescribed dosage. Random S [place] prescription reviewed local pharmacy in [facility], no early refills on control substance educated on non-stimulate and stimulates limit caffeinetake stimulate after workout in am F90.2: Attention-deficit hyperactivity disorder, combined type 4. Long-term drug therapy Z79.899: Other fdc (current) drug therapy Plan Of Treatment Pending Test Test Name Order Date UDT 02/29/2024 Insurance Providers Payer Name Payer Address Payer Phone Subscriber Number Group Number Insured Name Patient Relationship to Insured Coverage Start Date Coverage End Date [facility] [address] [place] [phone] [id number] IVAN CHATMAN Self - patient is the insured Medical (General) History Medical History History ICD Code Problems: Adult attention deficit hypera ctivity disorder Attention deficit hyperactivity disorder Attention deficit hyperactivity disorder , combined type Electronic cigarette user Generalized anxiety disorder Long-term drug therapy Mild recurrent major depression ,
--- OUTSIDE RECORDS SUMMARY | 2024-09-13 03:20 | XMS_ITS ---
Author Organization [facility] [employer] [facility] Address [facility] [address] [facility] [address] [place] [address] Care Team Providers Care Public Accountant Name Role Phone Perla Whipple Primary Care Provider Nita Head Unavailable [phone] REASON FOR VISIT script refill Social History Sex Assigned At : Social History Observation Description Sex Assigned At Female Encounters Encounter Location Date Provider Diagnosis [place] [address] [address] 08/15/2024 Nita Harris Plan Of Treatment No Information Progress Notes * FAISAL CHATMANOB: 7 (48 yo F)Acc No.[id number]:08/15/2024 Patient:?LURDESVICKYY :1975???Age:48 Y???Sex:Female Address:[address] [place] [address] [facility] [id number] * true * Date:? Generated for Printi cuca/Shai/eTransmitting on:?09/13/2024 03:19 AM [facility]
== END 2024-09-11 16:34 | disposition home or self-care (01) ==
PROVIDERS: PCP Physician Assistant; Visit Provider Physician Assistant
DX: R20.2 Paresthesia of skin (principal); M47.892 Other spondylosis, cervical region
CPT/HCPCS: 72040

== ENCOUNTER 2024-11-18 14:55 | Outpatient (CLI) | payer OTHER, SELFPAY ==
--- NOTE | ~2024-11-18 | MR_ITS ---
EXAMINATION: MR cervical spine wo con DATE: 11/18/2024 15:20 INDICATION: Cervical spondylosis without myelopathy. TECHNIQUE: Magnetic resonance imaging (MRI) of the cervical spine was performed without intravenous c ontrast. COMPARISON: Cervical spine radiographs 09/11/2024 FINDINGS: There is mild kyphosis of upper cervical spine. Vertebral body heights are normal. There is moderately decreased disc height at C5-C6 and mildly decreased disc height at C6-C7. The spinal cord signal intensity is normal. The following disc levels are specifically discussed: C2-C3: The disc does not extend beyond the endplate margin. There is no uncovertebral joint osteoarth ritis. There is severe bilateral facet joint osteoarthritis. There is mild left neural foraminal sten osis. There is no central canal stenosis. C3-C4: There is a central protrusion. There is mild bilateral uncovertebral joint osteoarthritis. The re is severe bilateral facet joint osteoarthritis. There is mild left neural foraminal stenosis. Ther e is mild central canal stenosis. C4-C5: The disc is bulging. There is mild bilateral uncovertebral joint osteoarthritis. There is kandi re right and mild left facet joint osteoarthritis. There is mild right neural foraminal stenosis. The re is mild central canal stenosis. C5-C6: The disc is bulging. There is severe bilateral uncovertebral joint osteoarthritis. There is mi ld right and moderate left facet joint osteoarthritis. There is mild bilateral neural foraminal steno sis. There is mild central canal stenosis. C6-C7: There is a central extrusion. There is moderate bilateral uncovertebral joint osteoarthritis. There is moderate bilateral facet joint osteoarthritis. There is mild bilateral neural foraminal sten osis. There is mild central canal stenosis. C7-T1: The disc does not extend beyond the endplate margin. There is no uncovertebral joint osteoarth ritis. There is severe bilateral facet joint osteoarthritis. There is mild bilateral neural foraminal stenosis. There is no central canal stenosis. IMPRESSION: 1. Moderate cervical spondylosis. Reviewed, dictated and finalized at location A.
== END 2024-11-18 14:56 | disposition home or self-care (01) ==
LOC: GOSHIMG 14:55
PROVIDERS: PCP Physician Assistant; Visit Provider Physician Assistant
DX: M47.812 Spondylosis without myelopathy or radiculopathy, cervical region (principal)
CPT/HCPCS: 72141

== ENCOUNTER 2025-04-17 16:01 | Outpatient (CLI) | payer OTHER, SELFPAY ==
--- NOTE | ~2025-04-17 | MM_ITS ---
EXAMINATION: MM screening [facility] BI w govind HISTORY: Screening TECHNIQUE: Craniocaudal and mediolateral oblique 3-D tomosynthesis images were obtained and synthetic 2-D images were generated. CAD analysis was submitted and interpreted. COMPARISON: Comparison to multiple prior studies sequentially, with oldest reviewed study dated 12/25/2017. BREAST PARENCHYMAL COMPOSITION: The breasts are heterogeneously dense, which may obscure small masses. FINDINGS: There is no evidence of suspicious mass, calcification, or architectural distortion to suggest malignancy in either breast. Scattered benign-appearing calcifications are present. IMPRESSION: 1. No mammographic evidence of malignancy. 2. Recommend routine screening mammography in one year. BI-RADS Category 2: Benign finding(s). Reviewed, dictated and finalized at location B.
== END 2025-04-17 16:02 | disposition home or self-care (01) ==
LOC: ANHFOHIMG 16:05
PROVIDERS: PCP Physician Assistant; Visit Provider Obstetrics & Gynecology
DX: Z12.31 Encounter for screening mammogram for malignant neoplasm of breast (principal)
CPT/HCPCS: 77063; 77067